=== PATIENT | female | born 1960 | race Caucasian/White ===

== ENCOUNTER 2016-10-08 08:43 | Inpatient (IN) | payer BC ==
[2016-10-08] VITALS (8 sets, daily range): BP systolic 94–130; BP diastolic 61–93; PULSE 67–104; TEMP 36.6–36.8; O2SAT 94–96; Ht 170.2 cm; Wt 128.8 kg
[~2016-10-08] VITALS: Ht 170.2 cm; Wt 128.8 kg
[2016-10-08] MEDS ORDERED: DILTIAZEM HCL 5 MG/ML 5 ML VIAL IV STA (09:08)
[2016-10-08] MEDS ORDERED: SODIUM CHLORIDE 0.9% 1000ML 1,000 ML IV ONE (09:15)
[2016-10-08 09:34] LABS: BASO % 0.5 %; BASO ABS # 0.04 K/uL (0-0.2); COMPLETE YES; EOS % 5.9 %; HEMATOCRIT 48.6 % (37-47); IG% 0.1 %; LYMPH % 35.4 %; LYMPH ABS # 2.62 K/uL (1.2-3.4); MEAN CELL VOLUME 88.8 fL (80-100); MEAN CORPUSCULAR HEMOGLOBIN 30.9 pg (25-34); MEAN CORPUSCULAR HGB CONC 34.8 g/dl (32-36); MEAN PLATELET VOLUME 9.5 fL (7.4-10.4); NEUT % 50.1 %; PLATELET COUNT 315 K/uL (130-400); RED BLOOD COUNT 5.47 M/uL (4.2-5.4); WHITE BLOOD COUNT 7.41 K/uL (4.8-10.8)
[2016-10-08] MEDS ORDERED: DILTIAZEM BOLUS / DRIP IV STA ×3 (09:36→10:36)
[2016-10-08 09:46] LABS: PROTHROMBIN TIME (PATIENT) 10.9 SECONDS (9.0-12.0)
[2016-10-08 09:53] LABS: ALT/SGPT 17 U/L (12-78); BLOOD UREA NITROGEN 18 mg/dl (7-18); BUN/CREATININE RATIO 18.5 (10-20); CALCIUM 8.7 mg/dl (8.5-10.1); CARBON DIOXIDE 26 mmol/L (21-32); CHLORIDE 112 mmol/L (98-107); CREATININE 0.97 mg/dl (0.60-1.20); GLUCOSE 111 mg/dl (70-99); POTASSIUM 3.8 mmol/L (3.5-5.1); SODIUM 145 mmol/L (136-145)
--- NOTE | 2016-10-08 09:54 | DIAGNOSTIC IMAGING REPORT ---
CHEST ONE VIEW PORTABLE CLINICAL HISTORY: palpitations COMPARISON STUDY: No previous studies for comparison. FINDINGS: The heart is at the upper limits of normal in size. There is no failure. There is no focal pulmonary consolidation. There are no pleural effusions.[ IMPRESSION: No active disease in the chest. Electronically signed by: Ken Natarajan M.D. 10/08/2016 9:52 AM Dictated Date/Time: 10/08/2016 9:52 AM
[2016-10-08 10:01] LABS: ALB/GLOB RATIO 0.8 (0.9-2); ALKALINE PHOSPHATASE 88 U/L (45-117); AST/SGOT 13 U/L (15-37); CKMB/CK RATIO 0.9 (0-3.0); MAGNESIUM 2.6 mg/dl (1.8-2.4)
[2016-10-08] MEDS: DILTIAZEM HCL INJ 125 MG in DEXTROSE 5% 100ML IV PRN ×2 (10:19→17:43)
--- NOTE | 2016-10-08 10:32 | EMERGENCY ROOM VISIT NOTE ---
ED Visit Note First contact with patient: 08:52 This is a 56-year-old female who presents emergency department complaining of heart palpitations. Her heart rate was found to be grossly elevated. The patient is reporting weakness along with this. She is unsure as to when this started. GENERAL: Patient is a healthy-appearing well-nourished female HEAD: Normocephalic atraumatic EYES: Ocular movements intact pupils equal and react to light OROPHARYNX mucous membranes are moist no exudates present no erythema or edema present NECK: Supple no nuchal rigidity CHEST: Good equal expansion LUNGS: Clear and equal to auscultation CARDIAC: Normal S1 and S2 ABDOMEN: Soft nontender no guarding BACK: No CVA tenderness EXTREMITIES: No pain upon palpation normal muscle strength in all groups no clubbing cyanosis or edema NEURO: Patient is following commands is answering questions appropriately. Alert and oriented x3 Cranial Nerves 2-12 grossly intact The patient was started on a Cardizem bolus and drip. I did discuss case with the hospitalist service who agreed to admit the patient. Patient and family were in agreement with treatment plan. I have personally spent greater than 90 minutes of critical care time in the direct management of this patient. This includes bedside care, interpretation of diagnostic studies, and testing, discussion with consultants, patient, and family members, and other required patient management activities. This 90 minutes is in excess of all separately billable procedures. Problem List Medical Problems: (1) Allergic rhinitis Status: Chronic (2) Asthma, mild persistent Status: Chronic (3) HTN (hypertension) Status: Chronic Surgical Problems: (1) History of tubal ligation Status: Chronic Current/Historical Medications Scheduled Montelukast Sodium (Singulair), 1 TAB PO DAILY Triamterene/Hctz (Triamterene/Hctz 37.5-25MG), 1 TAB PO DAILY Scheduled PRN Albuterol Sulfate (Proair Respiclick), 2 PUFF INH Q4H PRN for SOB/Wheezing Allergies Coded Allergies: Penicillins (Unverified Allergy, Severe, rash, 10/08/16) Sulfa Antibiotics (Unverified Allergy, Severe, GI UPSET, 10/08/16) Vital Signs Date Time Temp Pulse Resp B/P Pulse Ox O2 Delivery O2 Flow Rate FiO2 10/08/16 10:20 131 22 149/87 96 Room Air 10/08/16 10:03 108 10/08/16 09:34 93 Room Air 10/08/16 09:33 100 20 144/98 93 Room Air 10/08/16 09:15 174 22 120/104 95 Room Air 10/08/16 08:45 96 Room Air 10/08/16 08:45 36.3 118 22 172/112 96 Room Air Laboratory Results 10/08/16 09:10 Red Blood Count 5.47, Mean Corpuscular Volume 88.8, Mean Corpuscular Hemoglobin 30.9, Mean Corpuscular Hemoglobin Concent 34.8, Mean Platelet Volume 9.5, Neutrophils (%) (Auto) 50.1, Lymphocytes (%) (Auto) 35.4, Monocytes (%) (Auto) 8.0, Eosinophils (%) (Auto) 5.9, Basophils (%) (Auto) 0.5, Neutrophils # (Auto) 3.71, Lymphocytes # (Auto) 2.62, Monocytes # (Auto) 0.59, Eosinophils # (Auto) 0.44, Basophils # (Auto) 0.04 10/08/16 09:10 Test 10/08/16 09:10 10/08/16 09:32 White Blood Count 7.41 K/uL (4.8-10.8) Red Blood Count 5.47 M/uL (4.2-5.4) Hemoglobin 16.9 g/dL (12.0-16.0) Hematocrit 48.6 % (37-47) Mean Corpuscular Volume 88.8 fL (80-100) Mean Corpuscular Hemoglobin 30.9 pg (25-34) Mean Corpuscular Hemoglobin Concent 34.8 g/dl (32-36) Platelet Count 315 K/uL (130-400) Mean Platelet Volume 9.5 fL (7.4-10.4) Neutrophils (%) (Auto) 50.1 % Lymphocytes (%) (Auto) 35.4 % Monocytes (%) (Auto) 8.0 % Eosinophils (%) (Auto) 5.9 % Basophils (%) (Auto) 0.5 % Neutrophils # (Auto) 3.71 K/uL (1.4-6.5) Lymphocytes # (Auto) 2.62 K/uL (1.2-3.4) Monocytes # (Auto) 0.59 K/uL (0.11-0.59) Eosinophils # (Auto) 0.44 K/uL (0-0.5) Basophils # (Auto) 0.04 K/uL (0-0.2) RDW Standard Deviation 43.0 fL (36.4-46.3) RDW Coefficient of Variation 13.1 % (11.5-14.5) Immature Granulocyte % (Auto) 0.1 % Immature Granulocyte # (Auto) 0.01 K/uL (0.00-0.02) Prothrombin Time 10.9 SECONDS (9.0-12.0) Prothromb Time International Ratio 1.0 (0.9-1.1) Activated Partial Thromboplast Time 27.1 SECONDS (21.0-31.0) Partial Thromboplastin Ratio 1.0 Anion Gap 7.0 mmol/L (3-11) Est Creatinine Clear Calc Drug Dose 92.6 ml/min Estimated GFR () 76.7 Estimated GFR (Non- 66.2 BUN/Creatinine Ratio 18.5 (10-20) Calcium Level 8.7 mg/dl (8.5-10.1) Magnesium Level 2.6 mg/dl (1.8-2.4) Total Bilirubin 0.5 mg/dl (0.2-1) Aspartate Amino Transf (AST/SGOT) 13 U/L (15-37) Alanine Aminotransferase (ALT/SGPT) 17 U/L (12-78) Alkaline Phosphatase 88 U/L (45-117) Total Creatine Kinase 69 U/L (26-192) Total Protein 7.7 gm/dl (6.4-8.2) Albumin 3.5 gm/dl (3.4-5.0) Globulin 4.2 gm/dl (2.5-4.0) Albumin/Globulin Ratio 0.8 (0.9-2) Lipase 140 U/L (73-393) Thyroid Stimulating Hormone (TSH) 3.350 uIu/ml (0.300-4.500) Free Thyroxine 1.10 ng/dl (0.80-1.60) Lyme Disease IgG Antibody NEG (NEG) Lyme Disease IgM Antibody NEG (NEG) Bedside Troponin I 0.000 ng/ml (0-0.045) Medications Administered Medications (Trade) Dose Ordered Sig/Turner Route Start Time Stop Time Status Last Admin Dose Admin Diltiazem HCl 20 mg 20 mg NOW STAT IV 10/08/16 09:08 10/08/16 09:18 DC 10/08/16 09:22 20 MG Sodium Chloride 1,000 ml @ 999 mls/hr Q1H1M ONCE IV 10/08/16 09:15 10/08/16 10:15 DC 10/08/16 09:23 999 MLS/HR Diltiazem HCl/ Dextrose (Cardizem Inj/D5 100ml) 125 ml @ 0 mls/hr Q0M PRN IV 10/08/16 10:00 11/07/16 09:59 10/08/16 10:19 10 MLS/HR Departure Information Impression Primary Impression: Atrial fibrillation with RVR Referrals Zayda Syed M.D. (PCP) Patient Instructions [facility]
[2016-10-08] MEDS ORDERED: ALBU18002 INH (10:42)
[2016-10-08] MEDS ORDERED: MONT1TAB3 PO (10:42)
[2016-10-08] MEDS ORDERED: TRIATAB3 PO (10:42)
[2016-10-08 10:45] LABS: LYME DISEASE AB IGG NEG (NEG); LYME DISEASE AB IGM NEG (NEG)
[2016-10-08] MEDS ORDERED: ONDANSETRON INJ 2 MG/ML 2 ML VIAL IV PRN (10:45)
[2016-10-08] MEDS ORDERED: ACETAMINOPHEN 325 MG TAB PO PRN (10:45)
[2016-10-08] MEDS ORDERED: HEPARIN SOD 5000 UNIT/0.5 ML CARP ONE (10:55)
[2016-10-08] MEDS ORDERED: HEPARIN 25000 UNIT/500 ML D5W ONE (10:55)
[2016-10-08] MEDS ORDERED: PNEUMOCOCCAL POLYSACCHARIDES 25 MCG/0.5 ML VIAL/SYR IM. ONE (12:00)
[2016-10-08] MEDS ORDERED: PNEUMOCOCCAL ADMINISTRATION CHARGE ONE (12:00)
--- NOTE | 2016-10-08 12:01 | History and Physical ---
History & Physical Date & Time of Service: Oct 08, 2016 ~ 10:00 Chief Complaint: Palpitations, Shortness of Breath Primary Care Physician: Zayda Syed M.D. History of Present Illness 56 year old female who presents to the ER with palpitations and shortness of breath. Patient reports that over the past one month she has noted increasing exertional shortness of breath and decreased activity tolerance. This morning when she woke up she reports she was having palpitations. She continued to get ready and went to work. She reports that while walking into work she felt short of breath and palpitations got worse. She also had associated diaphoresis and lightheadedness. She called her PCP who referred her to the ER for further evaluation. She denies chest pain and pressure. No syncopal events. She denies abdominal pain, nausea, vomiting, or diarrhea. Reports last week she had mild post nasal drip. She denies fever, chills, cough, and sputum production. In the ER, patient was found to be in rapid atrial fibrillation with rates in the 170s. She was given Cardizem bolus 20mg and then started on drip. Rates are now in the 120s. Patient reports improved in her symptoms. Past Medical/Surgical History Medical Problems: (1) Allergic rhinitis Status: Chronic (2) Asthma, mild persistent Status: Chronic (3) HTN (hypertension) Status: Chronic Surgical Problems: (1) History of tubal ligation Status: Chronic Family History FH: CVA (cerebrovascular accident) FATHER FH: HTN (hypertension) MOTHER FH: colon cancer BROTHER FH: diabetes mellitus FATHER BROTHER BROTHER Social History Smoking Status: Never Smoker Alcohol Use: occasionally Immunizations History of Influenza Vaccine: Yes Influenza Vaccine Date: Apr 04, 2016 History of Tetanus Vaccine?: Yes Tetanus Immunization Date: Dec 04, 2011 History of Pneumococcal: Yes Pneumococcal Date: Dec 04, 2011 Multi-Drug Resistant Organisms History of MDRO: No Allergies Coded Allergies: Penicillins (Unverified Allergy, Severe, rash, 10/08/16) Sulfa Antibiotics (Unverified Allergy, Severe, GI UPSET, 10/08/16) Home Medications Scheduled Montelukast Sodium (Singulair), 1 TAB PO DAILY Triamterene/Hctz (Triamterene/Hctz 37.5-25MG), 1 TAB PO DAILY Scheduled PRN Albuterol Sulfate (Proair Respiclick), 2 PUFF INH Q4H PRN for SOB/Wheezing Review of Systems 10 point review of systems was completed with the pertinent positives and negatives noted per the HPI Physical Exam Vital Signs Date Time Temp Pulse Resp B/P Pulse Ox O2 Delivery O2 Flow Rate FiO2 10/08/16 10:57 123 22 149/61 96 Room Air 10/08/16 10:20 131 22 149/87 96 Room Air 10/08/16 10:03 108 10/08/16 09:34 93 Room Air 10/08/16 09:33 100 20 144/98 93 Room Air 10/08/16 09:15 174 22 120/104 95 Room Air 10/08/16 08:45 96 Room Air 10/08/16 08:45 36.3 118 22 172/112 96 Room Air General Appearance: no apparent distress Head: normocephalic Eyes: normal inspection ENT: hearing grossly normal Neck: supple, no JVD Respiratory/Chest: lungs clear, normal breath sounds, no respiratory distress Cardiovascular: no edema, + tachycardia, + irregularly irregular Abdomen/GI: normal bowel sounds, non tender, soft Extremities/Musculoskelatal: normal inspection, no calf tenderness Neurologic/Psych: no motor/sensory deficits, alert, normal mood/affect, oriented x 3 Skin: normal color, warm/dry Diagnostics Laboratory Results Results Past 24 Hours Test 10/08/16 09:10 10/08/16 09:32 10/08/16 10:38 Range/Units White Blood Count 7.41 4.8-10.8 K/uL Red Blood Count 5.47 4.2-5.4 M/uL Hemoglobin 16.9 12.0-16.0 g/dL Hematocrit 48.6 37-47 % Mean Corpuscular Volume 88.8 80-100 fL Mean Corpuscular Hemoglobin 30.9 25-34 pg Mean Corpuscular Hemoglobin Concent 34.8 32-36 g/dl Platelet Count 315 130-400 K/uL Mean Platelet Volume 9.5 7.4-10.4 fL Neutrophils (%) (Auto) 50.1 % Lymphocytes (%) (Auto) 35.4 % Monocytes (%) (Auto) 8.0 % Eosinophils (%) (Auto) 5.9 % Basophils (%) (Auto) 0.5 % Neutrophils # (Auto) 3.71 1.4-6.5 K/uL Lymphocytes # (Auto) 2.62 1.2-3.4 K/uL Monocytes # (Auto) 0.59 0.11-0.59 K/uL Eosinophils # (Auto) 0.44 0-0.5 K/uL Basophils # (Auto) 0.04 0-0.2 K/uL RDW Standard Deviation 43.0 36.4-46.3 fL RDW Coefficient of Variation 13.1 11.5-14.5 % Immature Granulocyte % (Auto) 0.1 % Immature Granulocyte # (Auto) 0.01 0.00-0.02 K/uL Prothrombin Time 10.9 9.0-12.0 SECONDS Prothromb Time International Ratio 1.0 0.9-1.1 Activated Partial Thromboplast Time 27.1 21.0-31.0 SECONDS Partial Thromboplastin Ratio 1.0 Sodium Level 145 136-145 mmol/L Potassium Level 3.8 3.5-5.1 mmol/L Chloride Level 112 98-107 mmol/L Carbon Dioxide Level 26 21-32 mmol/L Anion Gap 7.0 3-11 mmol/L Blood Urea Nitrogen 18 7-18 mg/dl Creatinine 0.97 0.60-1.20 mg/dl Est Creatinine Clear Calc Drug Dose 92.6 ml/min Estimated GFR () 76.7 Estimated GFR (Non- 66.2 BUN/Creatinine Ratio 18.5 10-20 Random Glucose 111 70-99 mg/dl Calcium Level 8.7 8.5-10.1 mg/dl Magnesium Level 2.6 1.8-2.4 mg/dl Total Bilirubin 0.5 0.2-1 mg/dl Aspartate Amino Transf (AST/SGOT) 13 15-37 U/L Alanine Aminotransferase (ALT/SGPT) 17 12-78 U/L Alkaline Phosphatase 88 45-117 U/L Total Creatine Kinase 69 26-192 U/L Creatine Kinase MB 0.6 0.5-3.6 ng/ml Creatine Kinase MB Ratio 0.9 0-3.0 Total Protein 7.7 6.4-8.2 gm/dl Albumin 3.5 3.4-5.0 gm/dl Globulin 4.2 2.5-4.0 gm/dl Albumin/Globulin Ratio 0.8 0.9-2 Lipase 140 73-393 U/L Thyroid Stimulating Hormone (TSH) 3.350 0.300-4.500 uIu/ml Free Thyroxine 1.10 0.80-1.60 ng/dl Lyme Disease IgG Antibody NEG NEG Lyme Disease IgM Antibody NEG NEG Bedside Troponin I 0.000 0-0.045 ng/ml Diagnostic Radiology CXR IMPRESSION: No active disease in the chest. Impression Assessment and Plan NEW ONSET ATRIAL FIBRILLATION WITH RVR - admit to tele - patient presenting with palpitations, shortness of breath, diaphoresis, and lightheadedness; found to be in a fib with RVR, rates in the 170s - received Cardizem 20mg IV bolus in ED followed by drip - HR at the time of my exam was in the 120s, however drip was just hung - BP stable, patient symptoms improved - no clear causative factor identified - electrolytes and TSH WNL, no infectious sources - patient reports she drink 2 cups coffee/day - will continue cardizem drip; start IV heparin - CHADS2 - 1 (HTN) - initial troponin negative, continue to cycle cardiac enzymes; check resting echo - cardio consult, case discussed with Dr. Michelle HTN - hypertensive on arrival, improving with Cardizem - hold Maxzide for now DVT PROPHYLAXIS - on heparin gtt DISPO - In my clinical judgment this beneficiary meets acute admission criteria, established by [facility], that includes being hospitalized through two midnights. I have seen, examined and discussed this patient with Treasure Chung and I agree with the above note. Patient presented with palpitations. Vitals notable for tachycardia PE: General- awake; alert; NAD Eyes- EOMI; no scleral icterus Neck- no stridor; trachea midline Lungs- CTA bilaterally; no wheezes/crackles Heart- irregularly irregular Abdomen- soft; NTND; nBS Back- no gross abnormalities Extremities- trace LE edema; no deformity Neuro- no focal deficits Skin- no appreciable rash or bruise NEW ONSET ATRIAL FIBRILLATION WITH RVR - heart rate improved with diltiazem infusion - no clear causative factor identified - electrolytes and TSH WNL, no infectious sources - continue heparin drip - CHADS2 - 1 (HTN) - cardiac enzymes negative - TTE pending - cardiology consulted - metoprolol started HTN - hypertensive on arrival - improved with diltiazem - hold Maxzide for now DVT PROPHYLAXIS - on heparin gtt VTE Prophylaxis VTE Risk Assessment Done? Y/N: Yes Risk Level: Moderate Given or contraindicated: Other Anticoagulation
[2016-10-08] MEDS ORDERED: DILTIAZEM HCL INJ 125 MG in DEXTROSE 5% 100ML IV PRN (13:00)
[2016-10-08 14:24] LABS: URINE APPEARANCE CLEAR (CLEAR); URINE BILIRUBIN NEG (NEG); URINE COLOR YELLOW; URINE EPITHELIAL CELL AUTO 20-30 /lpf (0-5); URINE NITRITE NEG (NEG); URINE SPECIFIC GRAVITY 1.007 (1.000-1.030); UROBILINOGEN NEG (NEG); ZZUR CULT IF INDIC CLEAN CATCH NO
[2016-10-08 14:29] LABS: MANUAL MICROSCOPIC REQUIRED? NO; REVIEW REQ? NO
--- NOTE | 2016-10-08 15:28 | EMERGENCY ROOM VISIT NOTE ---
History First contact with patient: 08:52 Chief Complaint: PALPITATIONS Stated Complaint: NEW ONSET ATRIAL FIBRILATION Nursing Triage Summary: Pt states she has had palpitations since approx 7a.m. after being awake with shortness of breath. Denies complaints of pain, pt states "just feeling like my heart racing and that I am breathing heavier." History of Present Illness The patient is a 56 year old female who presents to the Emergency Room with complaints of palpitations and shortness of breath that began about 90 minutes ago. The patient does not have distinct chest pain or radiation of pain, but states that ambulation does seem to worsen her symptoms. She feels like her heart is racing and that her breathing is heavy. The patient considers herself usually healthy. There is a family history of cardiac disease and diabetes, however the patient does not have these. She does not have distinct pain and rates her overall discomfort a 2/10. She has not taken anything over-the- counter for her symptoms. She does not feel lightheaded or dizzy. No numbness or paresthesias. Review of Systems More than 10 systems were reviewed and otherwise negative with the exception of history of present illness. Past Medical/Surgical History Medical Problems: (1) Allergic rhinitis (2) Asthma, mild persistent (3) HTN (hypertension) Surgical Problems: (1) History of tubal ligation Family History FH: CVA (cerebrovascular accident) FATHER FH: HTN (hypertension) MOTHER FH: colon cancer BROTHER FH: diabetes mellitus FATHER BROTHER BROTHER Social History Smoking Status: Never Smoker Housing Status: lives with family Current/Historical Medications Scheduled Montelukast Sodium (Singulair), 1 TAB PO DAILY Triamterene/Hctz (Triamterene/Hctz 37.5-25MG), 1 TAB PO DAILY Scheduled PRN Albuterol Sulfate (Proair Respiclick), 2 PUFF INH Q4H PRN for SOB/Wheezing Allergies Coded Allergies: Penicillins (Unverified Allergy, Severe, rash, 10/08/16) Sulfa Antibiotics (Unverified Allergy, Severe, GI UPSET, 10/08/16) Physical Exam Vital Signs Date Time Temp Pulse Resp B/P Pulse Ox O2 Delivery O2 Flow Rate FiO2 10/08/16 10:20 131 22 149/87 96 Room Air 10/08/16 10:03 108 10/08/16 09:34 93 Room Air 10/08/16 09:33 100 20 144/98 93 Room Air 10/08/16 09:15 174 22 120/104 95 Room Air 10/08/16 08:45 96 Room Air 10/08/16 08:45 36.3 118 22 172/112 96 Room Air Pain Rating (0-10): 0 Physical Exam VITALS: Vitals are noted on the nurse's note and reviewed by myself. Vital signs with tachycardia and hypertension GENERAL: Well-developed, well-nourished, white female, who is in no acute distress and resting comfortably. Patient is cooperative with the examination. HEAD: Normocephalic atraumatic. HEART: Irregularly irregular LUNGS: Clear to auscultation bilaterally without wheezes, rales or rhonchi. No retractions or accessory muscle use. ABDOMEN: Positive normal bowel sounds x 4. Soft, nontender, without masses or organomegaly. MUSCULOSKELETAL: No muscle atrophy, erythema, or edema noted. NEURO: Patient was alert and oriented to person place and time. CN II through XII grossly intact. Medical Decision & Procedures ER Provider Diagnostic Interpretation: CHEST ONE VIEW PORTABLE CLINICAL HISTORY: palpitations COMPARISON STUDY: No previous studies for comparison. FINDINGS: The heart is at the upper limits of normal in size. There is no failure. There is no focal pulmonary consolidation. There are no pleural effusions.[ IMPRESSION: No active disease in the chest. Laboratory Results 10/08/16 09:10 Red Blood Count 5.47, Mean Corpuscular Volume 88.8, Mean Corpuscular Hemoglobin 30.9, Mean Corpuscular Hemoglobin Concent 34.8, Mean Platelet Volume 9.5, Neutrophils (%) (Auto) 50.1, Lymphocytes (%) (Auto) 35.4, Monocytes (%) (Auto) 8.0, Eosinophils (%) (Auto) 5.9, Basophils (%) (Auto) 0.5, Neutrophils # (Auto) 3.71, Lymphocytes # (Auto) 2.62, Monocytes # (Auto) 0.59, Eosinophils # (Auto) 0.44, Basophils # (Auto) 0.04 10/08/16 09:10 Test 10/08/16 09:10 10/08/16 09:32 White Blood Count 7.41 K/uL (4.8-10.8) Red Blood Count 5.47 M/uL (4.2-5.4) Hemoglobin 16.9 g/dL (12.0-16.0) Hematocrit 48.6 % (37-47) Mean Corpuscular Volume 88.8 fL (80-100) Mean Corpuscular Hemoglobin 30.9 pg (25-34) Mean Corpuscular Hemoglobin Concent 34.8 g/dl (32-36) Platelet Count 315 K/uL (130-400) Mean Platelet Volume 9.5 fL (7.4-10.4) Neutrophils (%) (Auto) 50.1 % Lymphocytes (%) (Auto) 35.4 % Monocytes (%) (Auto) 8.0 % Eosinophils (%) (Auto) 5.9 % Basophils (%) (Auto) 0.5 % Neutrophils # (Auto) 3.71 K/uL (1.4-6.5) Lymphocytes # (Auto) 2.62 K/uL (1.2-3.4) Monocytes # (Auto) 0.59 K/uL (0.11-0.59) Eosinophils # (Auto) 0.44 K/uL (0-0.5) Basophils # (Auto) 0.04 K/uL (0-0.2) RDW Standard Deviation 43.0 fL (36.4-46.3) RDW Coefficient of Variation 13.1 % (11.5-14.5) Immature Granulocyte % (Auto) 0.1 % Immature Granulocyte # (Auto) 0.01 K/uL (0.00-0.02) Prothrombin Time 10.9 SECONDS (9.0-12.0) Prothromb Time International Ratio 1.0 (0.9-1.1) Activated Partial Thromboplast Time 27.1 SECONDS (21.0-31.0) Partial Thromboplastin Ratio 1.0 Anion Gap 7.0 mmol/L (3-11) Est Creatinine Clear Calc Drug Dose 92.6 ml/min Estimated GFR () 76.7 Estimated GFR (Non- 66.2 BUN/Creatinine Ratio 18.5 (10-20) Calcium Level 8.7 mg/dl (8.5-10.1) Magnesium Level 2.6 mg/dl (1.8-2.4) Total Bilirubin 0.5 mg/dl (0.2-1) Aspartate Amino Transf (AST/SGOT) 13 U/L (15-37) Alanine Aminotransferase (ALT/SGPT) 17 U/L (12-78) Alkaline Phosphatase 88 U/L (45-117) Total Creatine Kinase 69 U/L (26-192) Total Protein 7.7 gm/dl (6.4-8.2) Albumin 3.5 gm/dl (3.4-5.0) Globulin 4.2 gm/dl (2.5-4.0) Albumin/Globulin Ratio 0.8 (0.9-2) Lipase 140 U/L (73-393) Thyroid Stimulating Hormone (TSH) 3.350 uIu/ml (0.300-4.500) Free Thyroxine 1.10 ng/dl (0.80-1.60) Lyme Disease IgG Antibody NEG (NEG) Lyme Disease IgM Antibody NEG (NEG) Bedside Troponin I 0.000 ng/ml (0-0.045) Medications Administered Medications (Trade) Dose Ordered Sig/Turner Route Start Time Stop Time Status Last Admin Dose Admin Diltiazem HCl 20 mg 20 mg NOW STAT IV 10/08/16 09:08 10/08/16 09:18 DC 10/08/16 09:22 20 MG Sodium Chloride 1,000 ml @ 999 mls/hr Q1H1M ONCE IV 10/08/16 09:15 10/08/16 10:15 DC 10/08/16 09:23 999 MLS/HR Diltiazem HCl/ Dextrose (Cardizem Inj/D5 100ml) 125 ml @ 0 mls/hr Q0M PRN IV 10/08/16 10:00 11/07/16 09:59 10/08/16 10:19 10 MLS/HR ED Course Physical exam and history were performed. Nursing notes and EMR were reviewed. Patient appears to have palpitations and shortness of breath that began about 90 minutes prior to arrival. The patient does not have distinct chest pain. She indicates that she has never had an EKG in the past. EKG was performed here and shows atrial fibrillation with RVR with a rate in the 170s. There is no obvious ST elevation or ischemia. IV access was established and labs were obtained. The patient was hydrated with normal saline. I discussed the case with my attending physician, Dr. Menchaca, who remained very closely involved in care and decision making. The patient was given 20 mg diltiazem IV as well as a diltiazem drip. She was placed on a iv therapy nurse. Chest x-ray was performed. The patient's blood work is as above and was reviewed. She does not have a significantly elevated white blood cell count, bandemia, or significant electrolyte imbalance. Lipase and transaminases are nondiagnostic. Troponin 1 is negative. Repeat EKG after diltiazem showed a decreased rate of 104, however the patient did remain in atrial fibrillation with RVR. After Dr. Menchaca evaluated the patient, we discussed the case with the on-call hospitalist who agreed to evaluate the patient here in the ER. The patient is not felt stable for discharge home and will need further care. Please see the hospitalist dictation for further patient plan and disposition. The chart was completed utilizing [employer] Speech Voice Recognition Software. Grammatical errors, random word insertions, pronoun errors, and incomplete sentences are an occasional consequence of this system due to software limitations, ambient noise, and hardware issues. Any formal questions or concerns about the content, text, or information contained within the body of this dictation should be directly addressed to the provider for clarification. . Medical Decision Differential diagnosis includes, but is not limited to: Myocardial infarction, dysrhythmia, pericarditis, pneumothorax, aortic aneurysm/dissection, DVT/PE, anxiety, GERD, PUD, electrolyte imbalance, thyroid disorder, pneumonia, bronchitis, pancreatitis, and others Impression Primary Impression: Atrial fibrillation with rapid ventricular response Departure Information Dispostion Being Evaluated By Hospitalist Condition FAIR Referrals Zayda Syed M.D. (PCP) Forms WORK / SCHOOL INSTRUCTIONS, HOME CARE DOCUMENTATION FORM, IMPORTANT VISIT INFORMATION Patient Instructions [facility]
--- NOTE | 2016-10-08 15:44 | CARDIOLOGY CONSULTATION ---
DATE OF CONSULTATION: 10/08/2016 [facility] REASON FOR CONSULTATION: Atrial fibrillation with RVR. HISTORY OF PRESENT ILLNESS: This is a 56-year-old female who presents to the Emergency Department with shortness of breath. She was in her usual state of health until this morning when she got up, she noticed some tachypnea. She tried to ambulate and while walking up the steps she was really short of breath and decided to present to the Emergency Department. She was found to be in atrial fibrillation with RVR. She was started on a heparin infusion and diltiazem drip. Her heart rates have markedly improved and she is feeling better. Thus far, cardiac markers are negative. Echocardiogram is pending. Thyroid function studies are negative. ALLERGIES: PENICILLIN AND SULFA ANTIBIOTICS. PAST MEDICAL HISTORY: The patient has no prior history of heart disease. She denies myocardial infarction, angina or congestive heart failure. She has no history of strokes, thyroid disease, or kidney disease. She is treated for hypertension. No personal history of diabetes, but her family history significant for diabetes. SOCIAL HISTORY: She is a never smoker. FAMILY MEDICAL HISTORY: Significant for father and 2 brothers with diabetes. REVIEW OF SYSTEMS: The 10-point review of systems is negative except for the history of chief complaint. PHYSICAL EXAMINATION: GENERAL: She is alert and oriented. VITAL SIGNS: Blood pressure is 130/80. Pulse is irregular at 90 beats per minute. She is afebrile. HEENT: She is normocephalic. Pupils are equal and reactive to light. Extraocular muscles are intact bilaterally. NECK: The neck veins are flat. Carotids have good upstrokes bilaterally without bruits. Thyroid is nonpalpable. RESPIRATORY: Breath sounds equal bilaterally and clear to auscultation. CARDIOVASCULAR: Heart has an irregular rhythm. There are no cardiac rubs or murmurs. GASTROINTESTINAL: Abdomen is soft, nontender without organomegaly. EXTREMITIES: Free of edema, digit clubbing, or cyanosis. NEUROLOGIC: Grossly intact. SKIN: Warm to touch. LYMPH NODES: Negative to palpation. LABORATORY DATA: The cardiac markers are negative thus far. Echocardiogram is pending. Thyroid functions are negative. IMPRESSION: Atrial fibrillation with rapid ventricular response. RECOMMENDATIONS: The patient has been started on a diltiazem drip and currently her heart rates are controlled. I am hopeful that she may convert to a normal sinus rhythm on her own. We will wait for the echocardiogram to be completed and I will review that. If she has no significant valvular heart disease, we may consider switching her to DOAC from heparin. Further evaluation and treatment following the above. MTDD
--- NOTE | 2016-10-08 16:56 | ECHOCARDIOGRAM REPORT ---
*NOTICE TO RECEIVING DEMOCRAT AGENCY This information is strictly Confidential and protected under [place] law. [place] law prohibits you from making any further disclosure of this information unless further disclosure is expressly permitted by the written consent of the person to whom it pertains or is authorized by law. A general authorization for the release of medical or other information is not sufficient for this purpose. Hospital accepts no responsibility if the information is made available to any other person, INCLUDING THE PATIENT. Interpretation Summary * Name: ERICK MAURO Study Date: 10/08/2016 02:56 PM BP: 128/84 mmHg * Patient Location: [facility] HR: 104 * : 1960 (M/d/yyyy) Gender: Female Height: 67 in * Age: 56 yrs Ethnicity: CA Weight: 283 lb * Ordering Physician: Treasure Chung * Referring Physician: Zayda Syed * Performed By: Irma Churchill RDCS * * Reason For Study: Atrial fibrillation * BSA: 2.3 m2 * -- Conclusions -- * There is normal left ventricular wall thickness. * Left ventricular systolic function is normal. * Ejection Fraction = 60-65%. * The right ventricular systolic function is normal. * The left atrial size is normal. * Right atrial size is normal. * No significant valvular pathology. Procedure Details * A complete two-dimensional transthoracic echocardiogram was performed (2D, M-mode, Doppler and color flow Doppler). Left Ventricle * The left ventricle is normal in size. * There is normal left ventricular wall thickness. * Ejection Fraction = 60-65%. * Left ventricular systolic function is normal. Right Ventricle * The right ventricle is normal in size and function. * There is normal right ventricular wall thickness. * The right ventricular systolic function is normal. Atria * The left atrial size is normal. * Right atrial size is normal. * The interatrial septum is intact with no evidence for an atrial septal defect. Mitral Valve * The mitral valve is normal in structure and function. * There is no mitral valve stenosis. * There is no mitral regurgitation noted. Tricuspid Valve * The tricuspid valve is normal in structure and function. * There is trace tricuspid regurgitation. Aortic Valve * The aortic valve is normal in structure and function. * No aortic regurgitation is present. Pulmonic Valve * The pulmonic valve is normal in structure and function. * There is no pulmonic valvular regurgitation. Great Vessels * The aortic root is normal size. * No obvious dissection could be visualized. * The pulmonary artery is normal size. Pericardium/Pleural * There is no pericardial effusion. MMode 2D Measurements and Calculations IVSd 1.1 cm LVIDd 3.5 cm LVIDs 2.3 cm LVPWd 1.2 cm IVS/LVPW 0.92 FS 32.9 % EDV(Teich) 49.3 ml ESV(Teich) 18.5 ml EF(Teich) 62.6 % EDV(cubed) 41.2 ml ESV(cubed) 12.4 ml EF(cubed) 69.8 % LV mass(C)d 117.4 grams LV mass(C)dI 50.1 grams/m\S\2 CO(Teich) 2.8 l/min CI(Teich) 1.2 l/min/m\S\2 SV(Teich) 30.8 ml SI(Teich) 13.2 ml/m\S\2 CO(cubed) 2.6 l/min CI(cubed) 1.1 l/min/m\S\2 SV(cubed) 28.8 ml SI(cubed) 12.3 ml/m\S\2 Ao root diam 3.4 cm Ao root area 9.2 cm\S\2 ACS 2.0 cm LA dimension 3.3 cm asc Aorta Diam 3.7 cm LA/Ao 0.96 LVOT diam 2.0 cm LVOT area 3.2 cm\S\2 LVAd ap4 29.0 cm\S\2 LVLd ap4 8.2 cm EDV(MOD-sp4) 84.0 ml LVAs ap4 15.0 cm\S\2 LVLs ap4 7.2 cm ESV(MOD-sp4) 27.2 ml EF(MOD-sp4) 67.6 % LVAd ap2 25.4 cm\S\2 LVLd ap2 8.8 cm EDV(MOD-sp2) 62.3 ml LVAs ap2 14.2 cm\S\2 LVLs ap2 7.1 cm ESV(MOD-sp2) 25.0 ml EF(MOD-sp2) 59.9 % CO(MOD-sp4) 5.1 l/min CI(MOD-sp4) 2.2 l/min/m\S\2 SV(MOD-sp4) 56.8 ml SI(MOD-sp4) 24.2 ml/m\S\2 CO(MOD-sp2) 3.4 l/min CI(MOD-sp2) 1.4 l/min/m\S\2 SV(MOD-sp2) 37.3 ml SI(MOD-sp2) 15.9 ml/m\S\2 Doppler Measurements and Calculations MV E max juliane 88.3 cm/sec MV dec time 0.17 sec Ao V2 max 112.5 cm/sec Ao max PG 5.1 mmHg Ao max PG (full) 1.4 mmHg MAYA(V,A) 2.7 cm\S\2 MAYA(V,D) 2.7 cm\S\2 AI max juliane 378.7 cm/sec AI max PG 57.4 mmHg AI dec slope 119.1 cm/sec\S\2 AI P1/2t 931.7 msec LV V1 max PG 3.7 mmHg LV V1 max 96.0 cm/sec PA V2 max 97.7 cm/sec PA max PG 3.8 mmHg PA acc slope 480.3 cm/sec\S\2 PA acc time 0.13 sec TR max juliane 169.9 cm/sec PA pr(Accel) 20.4 mmHg
[2016-10-08] MEDS ORDERED: MONTELUKAST SOD 10 MG TAB PO SCH (21:00)
[2016-10-08] MEDS: METOPROLOL TARTRATE 25 MG TAB PO SCH (21:33)
[2016-10-08] MEDS ORDERED: NURSING VERBAL MED ORDER ONE (23:30)
[2016-10-09] VITALS (10 sets, daily range): BP systolic 97–126; BP diastolic 61–78; PULSE 69–94; TEMP 36.5–36.9; O2SAT 94–97
[2016-10-09 01:34] LABS: PARTIAL THROMBOPLASTIN RATIO 2.3
[2016-10-09] MEDS: DILTIAZEM HCL INJ 125 MG in DEXTROSE 5% 100ML IV PRN ×2 (02:11→21:47)
[2016-10-09] MEDS: HEPARIN 25,000 UNIT/500ML D5W 500 ML IV PRN ×2 (04:01→21:46)
[2016-10-09 07:29] LABS: HEMATOCRIT 46.3 % (37-47); MEAN CELL VOLUME 89.4 fL (80-100); MEAN CORPUSCULAR HEMOGLOBIN 30.1 pg (25-34); MEAN CORPUSCULAR HGB CONC 33.7 g/dl (32-36); MEAN PLATELET VOLUME 9.2 fL (7.4-10.4); PLATELET COUNT 265 K/uL (130-400); RED BLOOD COUNT 5.18 M/uL (4.2-5.4); WHITE BLOOD COUNT 6.63 K/uL (4.8-10.8)
[2016-10-09 07:37] LABS: ESTIMATED AVERAGE GLUCOSE 105 mg/dl; HA1C FLAG Normal (Normal)
[2016-10-09 07:51] LABS: PARTIAL THROMBOPLASTIN RATIO 2.1
[2016-10-09 08:06] LABS: CREATININE 0.84 mg/dl (0.60-1.20); POTASSIUM 3.8 mmol/L (3.5-5.1)
[2016-10-09 08:36] LABS: CALCIUM 8.8 mg/dl (8.5-10.1)
--- NOTE | 2016-10-09 08:39 | Clinical Documentation Query ---
ALMA Paredes : CLINICAL DOCUMENTATION QUERY Patient is a 56 year old female admitted for evaluation and treatment of atrial fibrillation with RVR. BMI noted within EMR to be 44.5 kg/m*m. In order to capture this important clinical information, the condition associated with this finding must be explicitly documented by the provider. As appropriate, consider addendum of diagnosis as listed below as this directly impacts severity of illness, risk of mortality, and ultimately DRG assignment. In your clinical opinion is this patient being managed for: ( X ) Obesity ( ) Other explanation of clinical findings (Please Explain) ( ) Unable to determine (Please Define) ( ) Need to Discuss ( ) Not Agree The medical record reflects the following clinical findings, treatment, and risk factors. Clinical Indicators: As above Treatment: AHA diet Risk Factors: Caloric intake > expenditure, physical inactivity Clarification - BMI Reporting Coding Clinic [id number], p15 Question: There has been some confusion as to whether nursing staff documentation is acceptable for assigning BMI. Since hospitals are allowed to code the BMI based on the cfd engineer's documentation, it would seem reasonable to assign the BMI based on the nurse's documentation as well. Can coders use nursing documentation to assign the BMI? Answer: Yes, the BMI can be assigned based on medical record documentation from clinicians, including nurses and dieticians who are not the patient's provider. As stated in the Official Guidelines for Coding and Reporting, BMI code assignment may be based on medical record documentation from clinicians who are not the patient's provider, since this information is typically documented by other clinicians involved in the care of the patient. Dieticians were only mentioned as an example of a clinician that might document BMI information. However, the associated diagnosis (such as overweight, obesity, or underweight) must be documented by the provider. Copyright (2017), [facility] [facility] [employer] ("[employer]"), [place], [place]. Reproduced with permission. No portion of this publication may be copied without the express, written consent of [employer]. Please clarify and document your clinical opinion in the progress notes and discharge summary. Terms such as "probable", "suspected", "likely", "questionable", "possible", or "still to be ruled out" are acceptable. IF IN AGREEMENT, YOU MUST DOCUMENT ABOVE DIAGNOSTIC STATEMENT IN DAILY PROGRESS NOTES AND DISCHARGE SUMMARY. This document is not part of the patient's record. Thank You, Ashkan Capone, ANA ROSA [phone]
[2016-10-09] MEDS: MONTELUKAST SOD 10 MG TAB PO SCH (09:07)
[2016-10-09] MEDS: METOPROLOL TARTRATE 25 MG TAB PO SCH (09:07)
[2016-10-09] MEDS ORDERED: METOPROLOL TARTRATE 25 MG TAB PO ONE (09:45)
--- NOTE | 2016-10-09 10:04 | PROGRESS NOTE ---
DATE: 10/09/2016 FOLLOWUP VISIT SUBJECTIVE: The patient is a 56-year-old female, who presented with new onset atrial fibrillation and RVR. Cardiac markers after admission have been negative. Her echocardiogram does not show any significant valvular pathology and she has normal biventricular function. After admission, she was started on intravenous heparin and a diltiazem infusion, which has improved her heart rate and her symptoms, but she remains in persistent atrial fibrillation. We started to add metoprolol yesterday and I will increase the dose today with anticipation of weaning her from the diltiazem. At this point, it is unlikely that she will cardiovert on her own and I will arrange for a GALINA cardioversion in the morning. I am hopeful that she will return to sinus rhythm without having to start antiarrhythmic medications and hopefully, she will be able to go home on a beta-susana and a DOAC. Notice that her thyroid function studies were negative. OBJECTIVE: VITAL SIGNS: Pulse is irregular at 90 beats per minute. Blood pressure is 110/70. She is afebrile. GENERAL: She is alert and oriented, in no acute distress. HEENT: She is normocephalic. Pupils are equal and reactive to light. Extraocular muscles are intact bilaterally. NECK: The neck veins are flat. Carotids have good upstrokes bilaterally without bruits. Thyroid is nonpalpable. RESPIRATORY: Breath sounds equal bilaterally and clear to auscultation. CARDIOVASCULAR: Heart has an irregular rhythm. Normal S1, S2, no S3, S4. No cardiac rubs or murmurs. GASTROINTESTINAL: Abdomen is soft, nontender without organomegaly. EXTREMITIES: Free of edema, digit clubbing or cyanosis. NEUROLOGIC: Grossly intact. SKIN: Warm to touch. LYMPH NODES: Negative to palpation. LABORATORY DATA: Per the history of chief complaint, in addition, the patient had an overnight oximeter that I felt this shows significant desaturation and she, therefore, is unlikely to have sleep apnea. IMPRESSION: Persistent atrial fibrillation. RECOMMENDATIONS: As outlined above, the plan will be to proceed with GALINA cardioversion in the morning, if the patient does not spontaneously convert on her own. MTDD
--- NOTE | 2016-10-09 14:35 | Anesthesiology Progress Note ---
Pre-OP Anesthesia Assessment Date of Note Oct 09, 2016. Review patient information reviewed, chart reviewed, labs reviewed, acceptable for surgery Notes I saw this pt for pre-op eval for GALINA/cardioversion tomorrow. She presented w/ SOB and was found to be in new onset a. fib. w/ RVR. She was started on heparin and diltiazem drips. Her rate is now controlled and she feels much better. PMH significant only for morbid obesity, HTN, and asthma (very needs albuterol). On exam, she was walking the halls in no distress. Afebrile w/ stable vitals. Airway exam reassuring. Heart irregular, normal rate, w/ no murmurs. Lungs clear. Labs normal. EKG shows a. fib. w/ vent. rate of 78, low voltage, inferior infarct. TTE completely normal. CXR normal. I explained IV sedation to her and consented her for it. She'll be NPO after midnight except sips of water w/ meds.
--- NOTE | 2016-10-09 15:36 | Progress Note ---
Medicine Progress Note Date & Time of Visit: Oct 09, 2016 at 15:32. Subjective Patient seen and examined. Can feel palpitations with elevated heart rate. Objective Last 8 Hrs Date Time Temp Pulse Resp B/P Pulse Ox O2 Delivery O2 Flow Rate FiO2 10/09/16 12:00 Room Air 10/09/16 10:55 36.7 94 20 105/70 97 Room Air 10/09/16 10:12 113/73 10/09/16 08:00 Room Air 10/09/16 07:47 36.9 79 20 101/69 95 Room Air Physical Exam: General-awake; alert; NAD Eyes-EOMI; no scleral icterus Neck-no stridor; trachea midline Lungs-CTA bilaterally; no wheezes/crackles Heart-irregularly irregular; no m/r/g Abdomen-soft; NTND; nBS Extremities-no c/c/e; no deformity Neuro-no focal deficits Laboratory Results: Last 24 Hours Test 10/08/16 17:05 10/08/16 21:00 10/08/16 21:05 10/09/16 00:54 Activated Partial Thromboplast Time 76.9 SECONDS 59.7 SECONDS Partial Thromboplastin Ratio 3.0 2.3 Creatine Kinase MB Ratio Creatine Kinase MB < 0.5 ng/ml Troponin I < 0.015 ng/ml Test 10/09/16 07:20 White Blood Count 6.63 K/uL Red Blood Count 5.18 M/uL Hemoglobin 15.6 g/dL Hematocrit 46.3 % Mean Corpuscular Volume 89.4 fL Mean Corpuscular Hemoglobin 30.1 pg Mean Corpuscular Hemoglobin Concent 33.7 g/dl RDW Standard Deviation 43.8 fL RDW Coefficient of Variation 13.3 % Platelet Count 265 K/uL Mean Platelet Volume 9.2 fL Activated Partial Thromboplast Time 55.7 SECONDS Partial Thromboplastin Ratio 2.1 Sodium Level 141 mmol/L Potassium Level 3.8 mmol/L Chloride Level 108 mmol/L Carbon Dioxide Level 26 mmol/L Anion Gap 7.0 mmol/L Blood Urea Nitrogen 14 mg/dl Creatinine 0.84 mg/dl Est Creatinine Clear Calc Drug Dose 107.0 ml/min Estimated GFR () 91.3 Estimated GFR (Non- 78.8 BUN/Creatinine Ratio 17.0 Random Glucose 108 mg/dl Calcium Level 8.8 mg/dl Assessment & Plan NEW ONSET ATRIAL FIBRILLATION WITH RVR - heart rate improved with diltiazem infusion - no clear causative factor identified - electrolytes and TSH WNL, no infectious sources - continue heparin drip - CHADS2 - 1 (HTN) - cardiac enzymes negative - TTE normal - cardiology consulted - metoprolol started - plan for GALINA cardioversion tomorrow morning HTN - hypertensive on arrival - improved with diltiazem - metoprolol started - hold Maxzide for now OBESITY - BMI 44.5 - AHA diet DVT PROPHYLAXIS - on heparin gtt Consultants: Cardiology Procedures: TTE * There is normal left ventricular wall thickness. * Left ventricular systolic function is normal. * Ejection Fraction = 60-65%. * The right ventricular systolic function is normal. * The left atrial size is normal. * Right atrial size is normal. * No significant valvular pathology. Current Inpatient Medications: Current Inpatient Medications Medications (Trade) Dose Ordered Sig/Turner Route Start Time Stop Time Status Last Admin Dose Admin Diltiazem HCl/ Dextrose (Cardizem Inj/D5 100ml) 125 ml @ 0 mls/hr Q0M PRN IV 10/08/16 10:00 11/07/16 09:59 10/09/16 02:11 10 MLS/HR Acetaminophen (Tylenol Tab) 650 mg Q4H PRN PO 10/08/16 10:45 11/07/16 10:44 10/08/16 16:48 650 MG Ondansetron HCl 4 mg 4 mg Q6H PRN IV 10/08/16 10:45 11/07/16 10:44 Heparin Sodium/ Dextrose (Heparin 25,000 Unit/500ml D5W) 500 ml @ 28 mls/hr [id number] PRN IV 10/08/16 18:30 11/07/16 18:29 10/09/16 04:01 28 MLS/HR Montelukast Sodium (Singulair Tab) 10 mg DAILY PO 10/09/16 09:00 11/08/16 08:59 10/09/16 09:07 10 MG Metoprolol Tartrate (Lopressor Tab) 25 mg BID PO 10/09/16 21:00 11/08/16 20:59
[2016-10-09] MEDS ORDERED: WARFARIN SOD 5 MG TAB PO ONE (17:45)
--- NOTE | 2016-10-09 19:57 | Anesthesiology Progress Note ---
Pre-OP Anesthesia Assessment Date of Note Oct 09, 2016. Review patient information reviewed, chart reviewed, labs reviewed, acceptable for surgery Notes The patient was seen and evaluated , the chart reviewed. She is acceptable for her GALINA cardioversion tomorrow.
[2016-10-09] MEDS ORDERED: METOPROLOL TARTRATE 25 MG TAB PO SCH (21:00)
[2016-10-10] VITALS (10 sets, daily range): BP systolic 107–139; BP diastolic 72–85; PULSE 72–113; TEMP 36.6–36.7; O2SAT 93–98
[2016-10-10] MEDS ORDERED: PROPOFOL IV EMULSION 10 MG/ML 20 ML VIAL IV ONE (07:12)
[2016-10-10] MEDS ORDERED: KETAMINE HCL INJ 50 MG/ML 10 ML VIAL ONE (07:12)
[2016-10-10] MEDS ORDERED: MIDAZOLAM HCL 1 MG/ML 2ML VIAL ONE (07:12)
[2016-10-10] MEDS ORDERED: LIDOCAINE HCL 2% 2 ML VIAL (20MG/ML) ONE (07:22)
[2016-10-10 07:42] LABS: INR 1.1 (0.9-1.1); PROTHROMBIN TIME (PATIENT) 11.4 SECONDS (9.0-12.0)
--- NOTE | 2016-10-10 08:05 | Cardiology Procedure Brief Nt ---
Preliminary Cardiology Note Procedure Date Oct 10, 2016. Pre-Procedure Diagnosis symptomatic atrial fibrillation Post-Procedure Diagnosis NO LA or RITO thrombus, successful conversion to SR Procedure(s) Performed GALINA , DCCV, sedation administered by anesthesia Through Operator Pascale Davenport DO Garment Manufacturing Supervisor(s) DIANA Rodriguez Estimated Blood Loss none Preliminary Findings No left atrial or left atrial appendage thrombus. Successful conversion from AF to SR with 300 J of biphasic energy. Recommendations Continue heparin bridge, coumadin initiation. Plan to reassess pt on floor and discuss metoprolol therapy versus sotalol therapy. Anesthesia Versid 2 mg IV, Propofol 50 mg IV, Ketamine 15 mg IV Complication(s) None Disposition PCU
--- NOTE | 2016-10-10 08:19 | CARDIOVERSION ---
DATE OF OPERATION: 10/10/2016 PREPROCEDURE DIAGNOSIS: Symptomatic atrial fibrillation. POSTOPERATIVE DIAGNOSIS: No left atrial or left atrial appendage thrombus. Successful conversion to sinus rhythm. PROCEDURES PERFORMED: Focused transesophageal echocardiogram to assess left atrium and left atrial appendage, direct current cardioversion, sedation administered by Dr. Mayes of anesthesia. INSPECTOR CHIEF: Dr. Migue Davenport DO. SUPERVISOR PRODUCTION MANAGING: Kanwal Crowell, registered zipper setter chainstitch. PRELIMINARY FINDINGS: After informed consent was obtained and time out was performed the patient was sedated with the assistance of anesthesia receiving a total of Versed 2 mg IV, propofol 50 mg IV, and ketamine 15 mg IV. A focused transesophageal echocardiogram study was performed to evaluate the left atrium and left atrial appendage. The left atrial appendage was well visualized with no evidence of thrombus. The patient then underwent successful synchronized direct current cardioversion receiving 300 joules of biphasic energy with successful conversion to sinus rhythm. RECOMMENDATIONS: The patient is to continue heparin bridge, Coumadin initiation. I plan to reassess patient on the telemetry floor later this morning and discuss metoprolol therapy versus sotalol therapy. COMPLICATIONS: None. DISPOSITION: PCU. I attest to the content of the Intraoperative Record and any orders documented therein. Any exceptions are noted below. MTDD
--- NOTE | 2016-10-10 08:42 | Anesthesiology Progress Note ---
Anesthesia Post Op Note Date & Time Oct 10, 2016 at 08:41 Vital Signs Pain Intensity: 0 Vital Signs Past 12 Hours Date Time Temp Pulse Resp B/P Pulse Ox O2 Delivery O2 Flow Rate FiO2 10/10/16 08:15 74 16 128/80 96 Room Air 10/10/16 08:05 78 16 122/77 94 Room Air 10/10/16 07:55 78 16 120/76 98 Room Air 10/10/16 07:55 113 16 124/75 98 Room Air 10/10/16 07:50 113 16 131/72 96 Nasal Cannula 6 10/10/16 07:48 113 16 122/84 96 Nasal Cannula 6 10/10/16 07:45 105 16 132/82 96 Nasal Cannula 6 10/10/16 07:42 100 16 139/80 96 Nasal Cannula 4 10/10/16 07:40 100 16 131/85 96 Nasal Cannula 4 10/10/16 04:00 36.7 91 113/75 95 Room Air 10/10/16 04:00 95 Room Air 10/10/16 00:00 96 Room Air 10/09/16 23:18 36.6 87 18 106/71 96 Room Air 10/09/16 21:03 94 126/78 Notes Mental Status: alert / awake / arousable, participated in evaluation Pt Amnestic to Procedure: Yes Nausea / Vomiting: adequately controlled Pain: adequately controlled Airway Patency, RR, SpO2: stable & adequate BP & HR: stable & adequate Hydration State: stable & adequate Anesthetic Complications: no major complications apparent
[2016-10-10] MEDS ORDERED: EpHEDrine SULFATE INJ 50 MG/ML AMP IV PRN (08:45)
[2016-10-10] MEDS ORDERED: ATROPINE SULFATE 0.1 MG/ML 5ML SYR IV PRN (08:45)
[2016-10-10] MEDS: MONTELUKAST SOD 10 MG TAB PO SCH (08:52)
[2016-10-10] MEDS ORDERED: SOTALOL HCL 80 MG TAB PO SCH (09:00)
[2016-10-10] MEDS ORDERED: APIXABAN 2.5 MG TAB PO ONE (11:01)
--- NOTE | 2016-10-10 11:16 | Cardiology Follow-Up ---
Subjective General Date of Service: Oct 10, 2016. Chief Complaint: follow up exertional shortness of breath Pt evaluation today including: conversation w/ patient, conversation w/ family , physical exam History of Present Illness The patient is a 56 year old female seen in cardiology follow-up today prior to , during, and post recurrent cardioversion. The patient describes having presented to the hospital 2 days ago new-onset shortness of breath and sensation of racing heart rate. She was tightness with atrial fibrillation with rapid ventricular rate which was a new finding for her. She has a previous history of hypertension for which she has been on triamterene /or thiazide and her blood pressures have been controlled as an outpatient. The patient's atrial fibrillation was refractory to medications including oral metoprolol and IV diltiazem and therefore she underwent transesophageal echocardiogram guided direct-current cardioversion this morning with successful conversion to sinus rhythm. The patient feels much improved since conversion to sinus rhythm and remains in sinus rhythm post procedure. Her post procedure EKG revealed sinus rhythm with normal corrected QT interval. Allergies Coded Allergies: Penicillins (Verified Allergy, Intermediate, rash, 10/09/16) Sulfa Antibiotics (Verified Adverse Reaction, Intermediate, GI UPSET, 10/09) Social History Smoking Status: Never Smoker Hx Tobacco Use In Past Year?: No Hx Alcohol Use - Type And Amou: No Hx Substance Use - Type And Am: No Problem List Medical Problems: (1) Atrial fibrillation with rapid ventricular response Status: Acute Physical Exam Vital Signs Last Vital Signs Documentation Date Time Temp Pulse Resp B/P Pulse Ox O2 Delivery O2 Flow Rate FiO2 10/10/16 08:15 74 16 128/80 96 Room Air 10/10/16 07:50 6 10/10/16 04:00 36.7 Physical Exam Constitutional: Level of Distress: NAD Head: normocephalic Neck: supple Lungs: Auscultation: no wheezing, no rales/crackles Cardiovascular: Heart Auscultation: normal S1, no murmurs, no rubs, no gallops Abdomen: Inspection & Palpation: soft Extremities: no cyanosis, no edema, no varicosities Neurologic: Gait & Station: pertinent finding (no focal deficits) Assessment and Plan Assessment and Plan Impression: 56-year-old female 1. Newly diagnosed non valvular atrial fibrillation, this was persistent until patient underwent direct-current cardioversion. 2. Past history of hypertension 3. No structural heart disease on resting echocardiogram with normal biventricular systolic function, normal atrial chamber size, normal myocardial thickness, no significant valvular heart disease 4. CHADSVASC score of 2 for female sex and HTN, moderate risk of cardioembolic stroke. Plan: Last evening, I had initiated the process of coming up with a terminal makeup operator anticoagulation plan for the patient. I called in a prescription for Eliquis to her outpatient pharmacy and it was cost prohibitive with a $300 per month co- pay. I then called in a prescription for Xarelto and the pharmacist reported that there was a $300 per month co-pay. I therefore prescribed Coumadin overnight last night and plan to anticoagulate her with Coumadin in the future. On further discussion with the patient today she states that she recently changed insurance companies and had a new pharmacy card. With the help of nursing I submitted her new pharmacy card information to her outpatient pharmacy and received confirmation that Eliquis would be available for a $45 per month co-pay. The patient states that this would be an acceptable cost. Therefore I'm going to discontinue her heparin start Eliquis. Regarding ongoing rhythm therapy. I have debated transitioning her to sotalol for rhythm control and she received a dose this morning post cardioversion. The patient however is somewhat anxious to be discharged from the hospital and since this is her first episode of atrial fibrillation, I think that ongoing therapy with metoprolol tartrate 25 twice a day is a reasonable alternative to start with. Upon review of her echocardiogram she has no significant underlying structural heart disease, and if she requires antiarrhythmic therapy in the future, she would be a good candidate for flecainide plus susana as the next step if she has breakthrough atrial fibrillation on metoprolol. Summary: 1. Discontinue heparin, start Eliquis at the exact time that the heparin dose has been stopped. 2. Continue Eliquis 5 mg by mouth Q 12 hours, would have pt take dose #2 at 9 pm tonight and Q 12 hours from there. 3. Discharge on metoprolol tartrate 25 mg BID. 4. Stop prior to hospital Triamterene / HCTZ. Would recommend observing pt in the hospital on telemetry today until about 3 pm given GALINA CV this am, if doing well. DC to home then. Follow up with Dr Michelle in 2-4 weeks. Laboratory Results Last 24 Hours Test 10/10/16 06:52 Prothrombin Time 11.4 SECONDS Prothromb Time International Ratio 1.1 Activated Partial Thromboplast Time 50.9 SECONDS Partial Thromboplastin Ratio 2.0
[2016-10-10] MEDS ORDERED: APIX1TAB3 PO (11:48)
[2016-10-10] MEDS ORDERED: LPR25 PO (11:48)
--- NOTE | 2016-10-10 11:51 | Discharge Instructions ---
Discharge Instructions Date of Service Oct 10, 2016. Admission Reason for Admission: New Onset Atrial Fibrilation Discharge Discharge Diagnosis / Problem: Atrial fribrillation status post cardioversion Discharge Goals Goal(s): Improve disease control, Therapeutic intervention Activity Recommendations Activity Limitations: resume your previous activity . Instructions / Follow-Up Instructions / Follow-Up Please follow up with Family Medicine Dr. Syed on October 14 at 10:25am. Please follow up with Cardiology Dr. Michelle on October 21 at 9:25am. Please take your next dose of Apixaban (blood thinner) around 9:00pm tonight and then every 12 hours from there. You can take the metoprolol at the same time. Triamterene/HCTZ has been discontinued. Current Hospital Diet Patient's current hospital diet: AHA Diet (Heart Healthy) Discharge Diet Recommended Diet: AHA Diet (Heart Healthy) Pending Studies Studies pending at discharge: no Laboratory Results Hemoglobin A1c Test 10/08/16 09:10 Range/Units Estimated Average Glucose 105 mg/dl Hemoglobin A1c 5.3 4.5-5.6 % Medical Emergencies . Who to Call and When: Medical Emergencies: If at any time you feel your situation is an emergency, please call 911 immediately. . Non-Emergent Contact Non-Emergency issues call your: Primary Care Provider . . "Provider Documentation" section prepared by Hayley Causey. . VTE Core Measure Inpt VTE Proph given/why not?: Other Anticoagulation
--- NOTE | 2016-10-10 13:16 | TEE ---
*NOTICE TO RECEIVING DEMOCRAT AGENCY This information is strictly Confidential and protected under [place] law. [place] law prohibits you from making any further disclosure of this information unless further disclosure is expressly permitted by the written consent of the person to whom it pertains or is authorized by law. A general authorization for the release of medical or other information is not sufficient for this purpose. Hospital accepts no responsibility if the information is made available to any other person, INCLUDING THE PATIENT. Interpretation Summary * Name: ERICK MAURO Study Date: 10/10/2016 07:27 AM * Patient Location: C.2T\S\S241\S\2 HR: 117 * : 1960 (M/d/yyyy) Gender: Female Height: 67 in * Age: 56 yrs Ethnicity: CA Weight: 283 lb * Ordering Physician: Harish Michelle * Referring Physician: Zayda Syed * Performed By: Kanwal Crowell RCS * * Reason For Study: A-FIB * BSA: 2.3 m2 * -- Conclusions -- * A focused study was performed to assess the left atrial appendage and left atrium prior to cardioversion. * Limited views were obtained in order to limit the total amount of sedation time necessary for the procedure. * The left atrial size is normal. * No left atrial mass or thrombus visualized. * No thrombus is detected in the left atrial appendage. Procedure Details * GALINA Probe #3 was utilized for the procedure. Time Out: 0740 Probe In: 0742 Probe Out: 0748 50 mg of Propofol was administered for sedation. 15 mg of Ketamine was administered for sedation. 40 mg Lidocaine was administered for sedation. * The study was performed in Cardiac Catheterization Lab. * Time out was conducted by the physician, nurse, and technical operator with positive identification of patient and procedure. * Informed consent for Transesophageal Echocardiogram was obtained prior to the procedure. * An intravenous line was placed. A topical anesthetic agent was used for oropharangeal anesthesia. A bite block was inserted. * Sedation performed by the anesthesia department. * Midazolam 2 mg administered for sedation. * The posterior oropharynx was anesthetized using a topical anesthetic spray. A bite guard was inserted. * A multifrequency, multiplane transesopheageal echocardiographic endoscope was inserted and manipulated in the standard fashion to achieve multiplane views. * The transesophageal probe was passed without difficulty. * Limited views were obtained. * The patient tolerated the procedure well without evidence of orophangeal or esophageal trauma. * Limited views were obtained. Atria * The left atrial size is normal. * No left atrial mass or thrombus visualized. * No thrombus is detected in the left atrial appendage. * Right atrial size is normal. * The interatrial septum was not assessed. Mitral Valve * The mitral valve anatomy is normal. * There is no mitral valve prolapse present. * There is no vegetation seen on the mitral valve. * There is no mitral valve stenosis. * Mitral regurgitation was note assessed. Aortic Valve * Aortic stenosis is absent. Great Vessels * The aortic root is normal size. MMode 2D Measurements and Calculations Ao root diam 3.5 cm Ao root area 9.6 cm\S\2
[2016-10-10] MEDS ORDERED: WARFARIN SOD 10 MG TAB PO SCH (16:00)
[2016-10-10] MEDS ORDERED: WARFARIN SOD 5 MG TAB PO SCH (16:00)
--- NOTE | 2016-10-10 16:06 | Discharge Summary ---
Discharge Summary Date of Service Oct 10, 2016. Discharge Summary Admission Date: Oct 08, 2016 at 10:36 Discharge Date: Oct 10, 2016 Discharge Disposition: Home Principal Diagnosis: Atrial fibrillation s/p cardioversion Procedures: TTE * There is normal left ventricular wall thickness. * Left ventricular systolic function is normal. * Ejection Fraction = 60-65%. * The right ventricular systolic function is normal. * The left atrial size is normal. * Right atrial size is normal. * No significant valvular pathology. Consultations: Cardiology Medication Reconciliation New Medications: Apixaban (Eliquis) 5 Mg Tab 5 MG PO BID for 30 Days, #60 TAB Metoprolol Tartrate (Lopressor) 25 Mg Tab 25 MG PO BID for 30 Days, #60 TAB Continued Medications: Albuterol Sulfate (Proair Respiclick) 108 Mcg/Act Aer 2 PUFF INH Q4H PRN for SOB/Wheezing Montelukast Sodium (Singulair) 10 Mg Tab 1 TAB PO DAILY for 90 Days, #90 TAB 1 Refill Discontinued Medications: Triamterene/Hctz (Triamterene/Hctz 37.5-25MG) 1 Tab Tab 1 TAB PO DAILY for 30 Days, #30 TAB 5 Refills Admission Information HPI (per Admitting provider): 56 year old female who presents to the ER with palpitations and shortness of breath. Patient reports that over the past one month she has noted increasing exertional shortness of breath and decreased activity tolerance. This morning when she woke up she reports she was having palpitations. She continued to get ready and went to work. She reports that while walking into work she felt short of breath and palpitations got worse. She also had associated diaphoresis and lightheadedness. She called her PCP who referred her to the ER for further evaluation. She denies chest pain and pressure. No syncopal events. She denies abdominal pain, nausea, vomiting, or diarrhea. Reports last week she had mild post nasal drip. She denies fever, chills, cough, and sputum production. In the ER, patient was found to be in rapid atrial fibrillation with rates in the 170s. She was given Cardizem bolus 20mg and then started on drip. Rates are now in the 120s. Patient reports improved in her symptoms. Physical Exam (per Admitting): General Appearance: no apparent distress Head: normocephalic Eyes: normal inspection ENT: hearing grossly normal Neck: supple, no JVD Respiratory/Chest: lungs clear, normal breath sounds, no respiratory distress Cardiovascular: no edema, + tachycardia, + irregularly irregular Abdomen/GI: normal bowel sounds, non tender, soft Extremities/Musculoskelatal: normal inspection, no calf tenderness Neurologic/Psych: no motor/sensory deficits, alert, normal mood/affect, oriented x 3 Skin: normal color, warm/dry Hospital Course Patient was admitted with new onset atrial fibrillation in RVR. Cardiology was consulted. Patient was started on diltiazem and heparin drips. Electrolytes and TSH were normal. There was no evidence of infection. TTE was normal. Cardiac enzymes were negative. Patient was cardioverted on 10/10 with successful return to sinus rhythm. Patient was started on metoprolol and apixaban. Maxzide was discontinued. Patient deemed stable for discharge with Family Medicine and Cardiology follow up. PE on discharge: General- awake; alert; NAD Eyes- EOMI; no scleral icterus Neck- no stridor; trachea midline Lungs- CTA bilaterally; no wheezes/crackles Heart- RRR; no m/r/g Abdomen- soft; NTND; nBS Back- no gross abnormalities Extremities- no c/c/e; no deformity Neuro- no focal deficits Skin- no appreciable rash . Total time spent on discharge = This includes examination of the patient, discharge planning, medication reconciliation, and communication with other providers. Discharge Instructions Discharge Instructions Date of Service Oct 10, 2016. Admission Reason for Admission: New Onset Atrial Fibrilation Discharge Discharge Diagnosis / Problem: Atrial fribrillation status post cardioversion Discharge Goals Goal(s): Improve disease control, Therapeutic intervention Activity Recommendations Activity Limitations: resume your previous activity . Instructions / Follow-Up Instructions / Follow-Up Please follow up with Family Medicine Dr. Syed on October 14 at 10:25am. Please follow up with Cardiology Dr. Michelle on October 21 at 9:25am. Please take your next dose of Apixaban (blood thinner) around 9:00pm tonight and then every 12 hours from there. You can take the metoprolol at the same time. Triamterene/HCTZ has been discontinued. Current Hospital Diet Patient's current hospital diet: AHA Diet (Heart Healthy) Discharge Diet Recommended Diet: AHA Diet (Heart Healthy) Pending Studies Studies pending at discharge: no Laboratory Results Hemoglobin A1c Test 10/08/16 09:10 Range/Units Estimated Average Glucose 105 mg/dl Hemoglobin A1c 5.3 4.5-5.6 % Medical Emergencies . Who to Call and When: Medical Emergencies: If at any time you feel your situation is an emergency, please call 911 immediately. . Non-Emergent Contact Non-Emergency issues call your: Primary Care Provider . . "Provider Documentation" section prepared by Hayley Causey. . VTE Core Measure Inpt VTE Proph given/why not?: Other Anticoagulation Additional Copies To Zayda Syed M.D.
[2016-10-10] MEDS ORDERED: APIXABAN 2.5 MG TAB PO SCH (21:00)
[2016-10-10] MEDS ORDERED: METOPROLOL TARTRATE 25 MG TAB PO SCH (21:00)
[2017-02-03] MEDS ORDERED: VNTHFA/IN INH (11:04)
[2017-02-03] MEDS ORDERED: MONT1TAB3 PO (11:04)
[2017-02-03] MEDS ORDERED: FLVHFA110 INH (11:04)
[2017-02-03] MEDS ORDERED: CLR10 PO (11:04)
[2017-02-03] MEDS ORDERED: APIX1TAB3 PO (11:04)
[2017-02-03] MEDS ORDERED: DILT-113 PO (11:04)
[2017-02-03] MEDS ORDERED: HYDR12.55 PO (11:04)
== END 2016-10-10 16:36 | disposition home or self-care (01) | DRG 309 ==
LOC: ENRESERVDT → ENRESERVTM → C.EDB 08:45 → C.2T 10:36
PROVIDERS: ADMIT Internal Medicine; ATTEND Internal Medicine
PROC: 5A2204Z Restoration of Cardiac Rhythm, Single (ICD-10-PCS; principal; 2016-10-10 07:45)
DX: I48.1 Persistent atrial fibrillation (principal); Z68.44 Body mass index [BMI] 60.0-69.9, adult; I10 Essential (primary) hypertension; J45.909 Unspecified asthma, uncomplicated; E66.01 Morbid (severe) obesity due to excess calories; Z79.899 Other long term (current) drug therapy

== ENCOUNTER → 2017-02-04 | Day surgery (SDC) | payer BC ==
[2017-02-03 11:06] VITALS: BMI 44.0
[~2017-02-04] VITALS: Ht 170.2 cm; Wt 127.3 kg
[~2017-02-04] MED LIST: APIX1TAB3 PO; CLR10 PO; DILT-113 PO; FLVHFA110 INH; HYDR12.55 PO; MONT1TAB3 PO; SODIUM CHLORIDE 0.9% 500ML 500 ML IV ONE; VNTHFA/IN INH
[2017-02-04 12:54] VITALS: Ht 170.2 cm; Wt 127.3 kg
--- NOTE | 2017-02-04 13:19 | Endo History and Physical ---
History & Physical Date of Service: Feb 04, 2017. Chief Complaint: HISTORY OF POLYPS Referring Physician: CHRIS WELLS History of Present Illness family history of colon cancer (brother in his 50's) History of polyps - last colo 5 years ago Past Surgical History Hx Cardiac Surgery: Yes (CARDIOVERSION) Hx Internal Defibrillator: No Hx Pacemaker: No Hx Abdominal Surgery: Yes (TUBAL LIGATION) Hx of Implantable Prosthesis: No Hx Post-Op Nausea and Vomiting: Yes Hx Cancer Surgery: Yes (FACIAL EXCISION) Hx Thoracic Surgery: No Hx Orthopedic: No Hx Urinary Tract Surgery: No Family History Colon CA, Polyp Social History Smoking Status: Never Smoker Hx Substance Use: No Hx Alcohol Use: Yes (RARELY) Allergies Coded Allergies: Penicillins (Verified Allergy, Intermediate, rash, 02/04/17) Sulfa Antibiotics (Verified Adverse Reaction, Intermediate, GI UPSET, 02/04) Current Medications Reported Home Medications Medications Dose Route/Sig Max Daily Dose Days Date Category Singulair (Montelukast Sodium) 10 Mg Tab 10 Mg PO QAM 02/03/17 Reported Ventolin Hfa (Albuterol) 200 Puffs/75220 Mcg Aers 2-4 Puffs INH Q6H PRN 02/03/17 Reported Claritin (Loratadine) 10 Mg Tab 10 Mg PO QAM 02/03/17 Reported Flovent Hfa (Fluticasone Propionate) 120 Puffs/52204 Mcg Aero 2 Puffs INH BID PRN 30 02/03/17 Reported Tiazac (Diltiazem HCl) 180 Mg Capcr 180 Mg PO QAM 02/03/17 Reported Hydrochlorothiazide 12.5 Mg Tab 1 Tab PO QAM 90 02/03/17 Reported Eliquis (Apixaban) 5 Mg Tab 5 Mg PO QAM 02/03/17 Reported Vital Signs Weight (Kilograms): 127.27 Height (Feet): 5 Height (Inches): 7 Physical Exam General Appearance: WD/WN, no apparent distress Assessment and Plan colonoscopy today
--- NOTE | 2017-02-04 14:06 | Discharge Instructions ---
Endoscopy Patient Instructions Date / Procedure(s) Performed Feb 04, 2017. Colonoscopy Allergy Information Coded Allergies: Penicillins (Verified Allergy, Intermediate, rash, 02/04/17) Sulfa Antibiotics (Verified Adverse Reaction, Intermediate, GI UPSET, 02/04) Discharge Date / Findings Feb 04, 2017. small polyp Medication Instructions Stopped Medication(s): ELIQUIS STOPPED YESTERDAY...A-FIB Restart Stopped Medication(s): OK to resume all home medications Provider Instructions Activity Restrictions - No exercising or heavy lifting for 24 hours. - Do not drink alcohol the day of the procedure. - Do not drive a car or operate machinery until the day after the procedure. - Do not make any important decisions or sign important papers in 24 hours after the procedure. Following Day: - Return to full activity which may include returning to work/school. Diet Start your diet with liquids and light foods (jello, soup, juice, toast). Then eat your usual diet if not nauseated. Treatment For Common After Affects For mild abdominal pain, bloating, or excessive gas: - Rest - Eat lightly - Lie on right side Follow-Up Information Follow-up with CHRIS WELLS as scheduled Anesthesia Information What You Should Know You have had a procedure that required some medicine to reduce anxiety and discomfort. This treatment is called moderate sedation. After receiving the treatment, you may be sleepy, but you will be able to breathe on your own. The effects of the treatment may last for several hours. Follow these instructions along with Activity/Diet recommendations noted above: * Do NOT do anything where dizziness or clumsiness would be dangerous. * Rest quietly at home today, then you can be up and about tomorrow. * Have a responsible person stay with you the rest of today. * You may have had an I.V. today. If so, you may take the dressing off later today. Recommendations Call your doctor if: * Trouble breathing * Continuous vomiting for more than 24 hours * Temperature above 101 degrees * Severe abdominal pain or bloating * Pain not relieved by pain medicine ordered * There is increased drainage or redness from any incision * A large amount of rectal bleeding greater than 2-3 tablespoons. (If you had a polyp/s removed or have hemorrhoids, a small amount of blood - from the rectum is to be expected.) * You have any unanswered questions or concerns. IN THE EVENT OF A SERIOUS EMERGENCY, GO TO THE NEAREST EMERGENCY ROOM Your discharge instructions were prepared by provider Rose Meraz. Patient Instructions Signature Page Carley Garcia Patient (or Guardian) Signature/Date: I have read and understand the instructions given to me by my caregivers. Caregiver/RN/Doctor Signature/Date: The above-named patient and/or guardian has received patient instructions on this date. + Original Patient Signature Page (only) stays with chart. Please make copy for patient.
--- NOTE | 2017-02-04 14:06 | GI REPORT ---
Procedure Date: 02/04/2017 1:23 PM Procedure: Colonoscopy Indications: High risk colon cancer surveillance: Personal history of colonic polyps, Family history of colon cancer in brother in 50's Medicines: Propofol per Anesthesia Complications: No immediate complications. Estimated blood loss: Minimal. Estimated Blood Loss: Estimated blood loss was minimal. Procedure: Pre-Anesthesia Assessment: - Prior to the procedure, a History and Physical was performed, and patient medications, allergies and sensitivities were reviewed. The patient's tolerance of previous anesthesia was reviewed. - The risks and benefits of the procedure and the sedation options and risks were discussed with the patient. All questions were answered and informed consent was obtained. - Patient identification and proposed procedure were verified prior to the procedure by the physician and the nurse. The procedure was verified in the pre-procedure area in the procedure room. - Mental Status Examination: alert and oriented. Airway Examination: normal oropharyngeal airway and neck mobility. Respiratory Examination: clear to auscultation. CV Examination: normal. Abdominal Examination: bowel sounds present, abdomen soft and non-tender, no masses or organomegaly noted. - ASA Grade Assessment: II - A patient with mild systemic disease. After I obtained informed consent, the scope was passed under direct vision. Throughout the procedure, the patient's blood pressure, pulse, and oxygen saturations were monitored continuously. The scope was introduced through the anus and advanced to the terminal ileum. The colonoscopy was performed without difficulty. The patient tolerated the procedure well. The quality of the bowel preparation was good. Findings: The perianal and digital rectal examinations were normal. Pertinent negatives include normal sphincter tone and no palpable rectal lesions. The terminal ileum appeared normal. A 1 mm polyp was found in the sigmoid colon. The polyp was sessile. The polyp was removed with a cold snare. Resection and retrieval were complete. Verification of patient identification for the specimen was done by the physician and nurse using the patient's name and date. Estimated blood loss was minimal. The retroflexed view of the distal rectum and anal verge was normal and showed no anal or rectal abnormalities. Impression: - The examined portion of the ileum was normal. - One 1 mm polyp in the sigmoid colon, removed with a cold snare. Resected and retrieved. - The distal rectum and anal verge are normal on retroflexion view. Recommendation: - Await pathology results. - Repeat colonoscopy in 3 years for surveillance. - Return to referring physician as previously scheduled. - Discharge patient to home. Ruben Bradley, 02/04/2017 2:05:30 PM This report has been signed electronically. Note Initiated On: 02/04/2017 1:23 PM I attest to the content of the Intraoperative Record and orders documented therein, exceptions below
[2017-02-04 14:24] VITALS: BP 122/84; PULSE 73; O2SAT 98
--- NOTE | 2017-02-04 14:47 | Anesthesiology Progress Note ---
Anesthesia Post Op Note Date & Time Feb 04, 2017 at 14:47 Vital Signs Pain Intensity: 0 Vital Signs Past 12 Hours Date Time Temp Pulse Resp B/P (MAP) Pulse Ox O2 Delivery O2 Flow Rate FiO2 02/04/17 14:24 73 20 122/84 (97) 98 Room Air 02/04/17 14:09 70 20 123/83 (96) 96 Room Air 02/04/17 13:54 86 20 103/61 (75) 95 Room Air 02/04/17 13:15 37.1 62 20 111/76 (88) 97 Room Air Notes Mental Status: alert / awake / arousable, participated in evaluation Pt Amnestic to Procedure: Yes Nausea / Vomiting: adequately controlled Pain: adequately controlled Airway Patency, RR, SpO2: stable & adequate BP & HR: stable & adequate Hydration State: stable & adequate Anesthetic Complications: no major complications apparent
== END | disposition home or self-care (01) ==
LOC: C.GI 12:28
PROVIDERS: ATTEND Internal Medicine
DX: Z12.11 Encounter for screening for malignant neoplasm of colon (principal); D12.5 Benign neoplasm of sigmoid colon; Z86.010 Personal history of colon polyps; Z80.0 Family history of malignant neoplasm of digestive organs

== ENCOUNTER 2019-04-24 10:23 | Inpatient (IN) ==
--- OUTSIDE RECORDS SUMMARY | 2019-04-24 10:26 | External Medical Summary | Continuity of Care Document ---
:1960 Author Name Richar Dominguez Address Unavailable Unavailable , Care Team Providers Name Role Phone Chad Dominguez, I. Unavailable [email or web address] PCP, UNKNOWN Unavailable Unavailable Unavailable Unavailable Unavailable Problems Migraine headache (346.90) (G43.909) Hypercholesterolemia (272.0) (E78.00) Encounter for routine gynecological examination (V72.31) (Z0 1.419) Polyp of sigmoid colon (211.3) (D12.5) Asthma (493.90) (J45.909) History of allergy (V15.09) (Z88.9) Abnormal menses (626.9) (N92.6) Allergies and Adverse Reactions Penicillins (Allergy) Medications Wellbutrin SR TBCR Refills: 0 Elizabet TABS Refills: 0 Singulair TABS Refills: 0 Procedures History of Tubal Ligation Status: Comple eva History of Papanicolaou smear of cervix with atypical squamo us Status: Completed cells of undetermined significance (ASC-US) Immunizations Immunizations not documented Family History Brother Family history of Colon Cancer (V16.0) Status: Active Social History - Smoking Status Unknown if ever smoked Plan of Treatment Planned Observations Planned Goals not documented Results No Known Results Results not documented
[2019-04-24] MEDS ORDERED: SODIUM CHLORIDE 0.9% 1000ML 1,000 ML IV ONE (10:52)
[2019-04-24 10:54] LABS: Hematocrit (blood only) 46.6 % (37-47); Hemoglobin 16.4 g/dL (12.0-16.0); Mean Corpuscular Hemoglobin 31.5 pg (25-34); Mean Corpuscular Hgb Conc 35.2 g/dL (32-36); Mean Corpuscular Volume 89.6 fL (80-100); Mean Platelet Volume 9.4 fL (7.4-10.4); Platelet Count 256 K/uL (130-400); White Blood Count 6.39 K/uL (4.8-10.8)
[2019-04-24] MEDS ORDERED: dilTIAZem HCl 5 MG/ML 5 ML VIAL IV STA (10:56)
--- NOTE | 2019-04-24 11:01 | XRay Report ---
SINGLE VIEW CHEST CLINICAL HISTORY: Atypical chest pain. FINDINGS: An AP, portable, upright chest radiograph is compared to study dated 10/08/2016. The cardiom ediastinal silhouette is unremarkable. There is mild bibasilar atelectasis. The lungs and pleural spa fifi are otherwise clear. No pneumothorax is seen. The bony thorax is grossly intact. IMPRESSION: No active disease in the chest. Electronically signed by: Chandler Gutierrez M.D. 04/24/2019 10:59 AM
[2019-04-24 11:12] LABS: Alanine Aminotransferase 19 U/L (12-78); Albumin Level 2.9 gm/dl (3.4-5.0); Aspartate Aminotransferase 20 U/L (15-37); BUN Creatinine Ratio 16.9 (10-20); Blood Urea Nitrogen 17 mg/dl (7-18); Calcium 8.9 mg/dl (8.5-10.1); Carbon Dioxide 26 mmol/L (21-32); Chloride 107 mmol/L (98-107); Creatinine Clr Calc Pharmacy 88.7 ml/min; Est GFR (African American) 73.8; Est GFR (Non-African American) 63.7; Glucose 108 mg/dl (70-99); Lipase 120 U/L (73-393); Potassium 3.4 mmol/L (3.5-5.1); Sodium 139 mmol/L (136-145)
[2019-04-24] MEDS: dilTIAZem HCl 125 MG in DEXTROSE 5% 100 ML IV SCH ×2 (11:14→17:05)
[2019-04-24 11:16] LABS: Albumin Globulin Ratio 0.6 (0.9-2); Alkaline Phosphatase 88 U/L (45-117); Bilirubin,Total 0.4 mg/dl (0.2-1); Globulin 4.9 gm/dl (2.5-4.0); Total Protein 7.9 gm/dl (6.4-8.2); Troponin I < 0.015 ng/ml (0-0.045)
[2019-04-24 11:24] LABS: Basophils # (auto) 0.09 K/uL (0-0.2); Basophils % (auto) 1.4 %; Eosinophils # (auto) 0.21 K/uL (0-0.5); Eosinophils % (auto) 3.3 %; Immature Granulocytes # (auto) 0.01 K/uL (0.00-0.02); Immature Granulocytes % (auto) 0.2 %; Lymphocytes # (auto) 2.52 K/uL (1.2-3.4); Lymphocytes % (auto) 39.4 %; Monocytes # (auto) 0.76 K/uL (0.11-0.59); Monocytes % (auto) 11.9 %; Neutrophils % (auto) 43.8 %
[2019-04-24] MEDS ORDERED: POTASSIUM CHLORIDE 20 MEQ TABCR PO STA (12:11)
[2019-04-24] MEDS ORDERED: METOPROLOL TARTRATE 25 MG TAB PO STA (12:29)
--- NOTE | 2019-04-24 12:55 | History & Physical Report ---
Date of Service April 24, 2019 Assessment & Plan (1) Atrial fibrillation with RVR: This is a 58-year-old female who has significant PMH of paroxysmal A. fib anticoagulated on Eliquis, HTN, allergic rhinitis, asthma, morbid obesity who presents to [facility] secondary to A. fib starting at approximately 1 AM. In ED EKG revealed atrial fibrillation with RVR, heart rate 142. CBC relatively unremarkable, potassium low at 3.4, troponin WNL, mag WNL. Chest x-ray revealed no acute cardiopulmonary abnormality. She received 10 mg bolus of diltiazem and started on diltiazem drip. Received 1 L IVF. Admit to PCU continue diltiazem gtt - wean as able Start Metoprolol tartrate 12.5mg bid (first dose now) - pt previously on BB in past and didn't tolerate due to fatigue, will likely need titration of oral diltiazem but due to pt excess of diltiazem prior to arrival will remain of dilt gtt for now consult cardiology Dr. Amador replete potassium > 4.0 Mag normal check TSH likely in setting of URI vs OTC meds vs zpack (2) Hypokalemia: K 3.4 give 40meq KCL x 1 now repeat in a.m. (3) URI (upper respiratory infection): URI x 6 days Finished Zpack today has been taking OTC robitussin DM; Tessalon Perles continue supportive care, sx likely viral and improving Flu swab pending (4) HTN (hypertension): blood pressure stable continue triamterene/HCTZ monitor (5) Asthma, mild persistent: no acute exacerbation continue flovent, prn xopenex neb continue Singulair (6) DVT prophylaxis: Eliquis FULL CODE Disposition: admit to PCU; Discharge to home when able Follow up: PCP Dr. Syed upon discharge Patient was seen and examined in collaboration with Dr. Owens, please see addendum Starting 04/25/19 pt will be under the care of Dr. Downs History of Present Illness Chief Complaint: Afib since 1 a.m. Primary Care Provider: Zayda Syed MD This is a 58-year-old female who has significant PMH of paroxysmal A. fib anticoagulated on Eliquis, HTN, allergic rhinitis, asthma, morbid obesity who presents to [facility] secondary to A. fib starting at approximately 1 AM. 3 daughters are at bedside. For the past 6 days patient has been experiencing URI symptoms including dry cough, subjective fever, sinus congestion and rhinorrhea. She was prescribed a Z-Hima which she completed her last dose this morning. She has also been taking ctmq-afs-[id number] Robitussin-DM and Tessalon Perles. Approximately 2 days ago she felt her symptoms start to improve, but not completely go away. She was awoken at approximately 1 AM this morning with a coughing fit, felt her heart racing and her heartbeat to be irregular. Her heart rate was in the 140s. She took a dose of her diltiazem 180 mg. Symptoms persisted and approximately 3 hours later she took half a tablet equating to 90 mg. Further complains of weakness and fatigue therefore she presented to ED. After receiving treatment in ED currently she does feel much improved. Denies any current feeling of fevers, chills, sweats, lightheadedness, dizziness, chest pain, shortness of breath, orthopnea, PND, hemoptysis, nausea, vomiting, abdominal pain, change in her bowel or urinary habits. For the past several days she has had an overall decreased appetite due to not feeling well. Thought she may be dehydrated. She has been taking medications as prescribed and has not missed a single dose of Eliquis. In ED EKG revealed atrial fibrillation with RVR, heart rate 142. CBC relatively unremarkable, potassium low at 3.4, troponin WNL, mag WNL. Chest x-ray revealed no acute cardiopulmonary abnormality. She received 10 mg bolus of diltiazem and started on diltiazem drip. Received 1 L IVF. Allergies Allergy/AdvReac Type Severity Reaction Status Date / Time Penicillins Allergy Intermediate rash Verified 04/24/19 12:08 Sulfa (Sulfonamide AdvReac Intermediate GI UPSET Verified 04/24/19 12:08 Antibiotics) meperidine [From Demerol] AdvReac Mild n/v Verified 04/24/19 12:09 Androgenic Anabolic Steroid AdvReac Palpitation Unverified 04/24/19 12:08 s Home Medications Home Medications Medication Instructions Recorded Confirmed Type albuterol sulfate [Ventolin HFA] 2 puff INHALATION Q6H PRN #1 02/03/17 04/24/19 History inhaler fluticasone propionate [Flovent 1 puff INHALATION BID 30 Days #1 02/03/17 04/24/19 History HFA] inhaler apixaban [Eliquis] 5 mg PO BID 04/24/19 04/24/19 History diltiazem HCl 180 mg PO QAM 04/24/19 04/24/19 History loratadine [Claritin] 10 mg PO QAM 04/24/19 04/24/19 History montelukast 10 mg PO HS 04/24/19 04/24/19 History triamterene-hydrochlorothiazid 1 cap PO QAM 04/24/19 04/24/19 History Past Med/Surg History Medical History PAF (paroxysmal atrial fibrillation) Allergic rhinitis (Chronic) HTN (hypertension) (Chronic) Asthma, mild persistent (Chronic) Surgical History History of colonoscopy History of tubal ligation (Chronic) Family History Father Stroke Other Colorectal cancer Social History Preferred Language: Hungarian Communication Ability: Effective Current Living Situation: Family Current Living Situation Comment: Lives with 2 daughters Feels Safe at Home: Yes Smoking Status: Never smoker Hx Alcohol Use: Yes Alcohol Intake Frequency: Rarely Hx Substance Use: No Review of Systems Review of Systems: All systems reviewed & are unremarkable except as noted in HPI & below Physical Exam Physical Exam: Constitutional: WD/WN, morbid obese F, vitals as above, NAD, sitting up in bed, pleasant, conversing easily Head: Normocephalic, Atraumatic Eyes: PERRL, conjunctivae normal, anicteric sclerae ENMT: external ear and nose normal, oropharynx normal Neck: trachea midline, no thyromegaly normal visual inspection Respiratory: Clear to auscultation b/l, no audible wheeze/rale/rhonci, normal effort +cough dry noted during exam Cardiovascular: IRR/IRR, no edema Vessels: no JVD or carotid bruit Chest: normal inspection of chest Abdomen: normal bowel sounds, soft, nontender, no hepatosplenomegaly Musculoskeletal: no cyanosis or clubbing, extremities motor strength 5/5 Skin: no rashes, warm and dry normal turgor Neurologic: PERRL, EOMI, accommodation nl, no face palsy, no dysarthria CN's II-XI intact bilaterally and moves all extremities Psychiatric: A+Ox3, euthymic affect Lymphatic: no cervical or axillary lymphadenopathy : deferred Results & Data Vital Signs (Past 12 Hours) Vital Signs Temp Pulse Resp BP Pulse Ox 04/24/19 12:01 100 H 20 94 04/24/19 12:00 94 H 20 126/61 94 04/24/19 11:31 94 H 21 93 04/24/19 11:30 93 H 23 139/80 93 04/24/19 11:05 110 H 18 93 04/24/19 11:04 166 H 24 141/68 H 93 04/24/19 11:00 139 H 17 04/24/19 10:41 143 H 17 04/24/19 10:28 36.6 C 66 20 111/74 95 Laboratory Results Short CBC 04/24/19 Range/Units 10:45 WBC 6.39 (4.8-10.8) K/uL Hgb 16.4 H (12.0-16.0) g/dL Hct 46.6 (37-47) % Plt Count 256 (130-400) K/uL [facility] 04/24/19 10:45 Sodium 139 Potassium 3.4 L Chloride 107 Carbon Dioxide 26 BUN 17 Creatinine 0.99 Glucose 108 H Calcium 8.9 Cardiac Enzymes 04/24/19 Range/Units 10:45 Troponin I < 0.015 (0-0.045) ng/ml Liver Function 04/24/19 Range/Units 10:45 Total Bilirubin 0.4 (0.2-1) mg/dl AST 20 (15-37) U/L ALT 19 (12-78) U/L Alkaline Phosphatase 88 (45-117) U/L Albumin 2.9 L (3.4-5.0) gm/dl Diagnostic Findings CXR: No active disease Medications Administered Diltiazem HCl 125 mg/ Dextrose 125 mls @ 0 mls/hr IV .Q0M [facility]; Protocol Stop: 05/24/19 10:59 Last Admin: 04/24/19 11:14 Dose: 5 mg/hr, 5 mls/hr Documented by: [id number] Cosigned by: [id number] Discontinued Medications Diltiazem HCl (Cardizem) 10 mg IV NOW STA Stop: 04/24/19 10:57 Last Admin: 04/24/19 11:15 Dose: 10 mg Documented by: [id number] Cosigned by: [id number] Sodium Chloride (Nss 1000ml) 1,000 mls @ 999 mls/hr IV .Q1H1M ONE Stop: 04/24/19 11:52 Last Infusion: 04/24/19 12:17 Dose: 0 mls/hr Documented by: [id number] Admin: 04/24/19 11:15 Dose: 999 mls/hr Documented by: [id number] Potassium Chloride (Klor-Con M20) 40 meq PO NOW STA Stop: 04/24/19 12:12 Last Admin: 04/24/19 12:20 Dose: 40 meq Documented by: [id number] ECG Rate (beats per minute): 142 Rhythm: atrial fibrillation Code Status & VTE Plan Code Status Full Code VTE Prophylaxis Plan VTE Prophylaxis will be ordered: Yes Supervising Physician Co-Signing Physician Notes I, Dr. Roberto Owens, have seen and examined the patient with physician patient care assistant and would like to comment that: Carley Garcia is a patient who present with history of PAROXYSMAL ATRIAL FIBRILLATION who presents ATRIAL FIBRILLATION WITH RAPID VENTRICUAR RESPONSE after some days of UPPER RESPIRATORY INFECTION (URI) -Chest X ray: No active disease in the chest. Patient completed outpatient Z- Pack -patient denies use of nasal decongestants -atrial fibrillation with rapid ventricular response likely occurred around 1 AM today when patient felt palpitations -patient had taken her usual whole pill of Diltiazem 180 mg daily and another half pill to make a total of 270 mg total of Diltiazem prior to coming to the ED -ED presentation of heart rates in the 140s, patient was given IV fluids and started on Diltiazem drip -when examined by hospitalist team heart rates in the low 100s to high 90s and in irregular rhythm -discussed with patient about starting low dose metoprolol 12.5 mg BID to expedite the down titration of diltiazem drip -patient agrees however, patient has in the past had poor tolerance to metoprolol as fatigue -discussed with patient that admitting hospitalist team trying to utilize oral metoprolol as temporary measure to have patient transition off of IV rate control medications -will request cardiology consult -continue systemic anticoagulation with home dose Eliquis -will send TSH -patient reports influenza vaccination as outpatient -agree with physician patient care assistant on management of other health issues including HYPERTENSION and mild hypokalemia likely due to chronic use of triamterene/HCTZ diuretics for blood pressure control On physical exam: General: no acute distress, patient appears to be comfortable Neck: normal visual inspection Lungs: some cough, clear to auscultation bilaterally, no wheezing Heart: heart rates in the low 100s, irregular rhythm Abdomen: soft, nontender, positive bowel sounds Extremities: no edema My colleague Dr. Downs will be the hospitalist physician for the patient starting on 04/25/19
[2019-04-24] MEDS ORDERED: LEVALBUTEROL HCL 0.63 MG/3 ML NEB NEB PRN (14:30)
[2019-04-24] MEDS ORDERED: guaiFENesin 600 MG TABCR PO PRN (14:30)
[2019-04-24] MEDS ORDERED: ONDANSETRON INJ 2 MG/ML 2 ML VIAL IV PRN (14:30)
[2019-04-24] MEDS ORDERED: POLYETHYLENE (MIRALAX) 17 GM PACK PO PRN (14:30)
[2019-04-24] MEDS ORDERED: ACETAMINOPHEN 325 MG TAB PO PRN (14:30)
[2019-04-24] MEDS ORDERED: BENZONATATE 100 MG CAPSULE PO PRN (14:30)
[2019-04-24] MEDS ORDERED: ALUMINUM/MAGNESIUM SUSP 30 ML UDC PO PRN (14:30)
--- NOTE | 2019-04-24 16:42 | Emergency Department Note ---
Entered by Gosia Laws acting as a scribe for History of Present Illness General Chief complaint: Chest Pain Stated complaint: AFIB Source: patient History of Present Illness Onset (ago): hour(s) Location: head (Tachycardia) Severity: similar to prior episodes Pain Consistency: + other (Sudden) Maximum Pain Intensity: 0 Quality: + other (Tachycardia) Relieved By: not by medication (inhaler) Associated symptoms: + cough, + shortness of breath, + weakness and + other (Positive tachycardia, dizziness, light headed. Negative abdominal pain, rhinorrhea. ); no chest pain Treatments prior to arrival: other (inhaler) The patient is a 58 year old female presenting to the Emergency Department complaining of sudden tachycardia starting at 0100 today. The patient reports that she was in bed and noticed that her heart began to race. She states that she is now dizzy, light headed and feels weak. She explains that she is sometimes short of breath as she has been dealing with a dry cough for the past week. She notes that she used her inhaler N[employer] ASSISTANT for her symptoms which did not provide relief. The patient reports that she has experienced these symptoms before as she has had A-fib for a few years and has asthma. She notes that she regularly takes Diltiazem and Eliquis. She denies chest pain, abdominal pain and rhinorrhea. Home Medications Home Medications Medication Instructions Recorded Confirmed Type albuterol sulfate [Ventolin HFA] 2 puff INHALATION Q6H PRN #1 02/03/17 04/24/19 History inhaler fluticasone propionate [Flovent 1 puff INHALATION BID 30 Days #1 02/03/17 History HFA] inhaler apixaban [Eliquis] 5 mg PO BID 04/24/19 04/24/19 History diltiazem HCl 180 mg PO QAM 04/24/19 04/24/19 History loratadine [Claritin] 10 mg PO QAM 04/24/19 04/24/19 History montelukast 10 mg PO HS 04/24/19 04/24/19 History triamterene-hydrochlorothiazid 1 cap PO QAM 04/24/19 04/24/19 History Allergies Allergy/AdvReac Type Severity Reaction Status Date / Time Penicillins Allergy Intermediate rash Verified 04/24/19 12:08 Sulfa (Sulfonamide AdvReac Intermediate GI UPSET Verified 04/24/19 12:08 Antibiotics) meperidine [From Demerol] AdvReac Mild n/v Verified 04/24/19 12:09 Androgenic Anabolic Steroid AdvReac Palpitation Unverified 04/24/19 12:08 s Past Med/Surg History Medical History PAF (paroxysmal atrial fibrillation) Allergic rhinitis (Chronic) HTN (hypertension) (Chronic) Asthma, mild persistent (Chronic) Surgical History History of colonoscopy History of tubal ligation (Chronic) Family History Father Stroke Other Colorectal cancer Social History Preferred Language: Martiniquais Communication Ability: Effective Building Maintenance Worker Required: No Beliefs That Will Affect Care: None Current Living Situation: Family Current Living Situation Comment: Lives with 2 daughters Other Information That Helps Us Care for You: No Feels Safe at Home: Yes Safety Concerns: Feels Safe At This Time Smoking Status: Former smoker Hx Alcohol Use: Yes (rarely) Alcohol type: wine Alcohol Intake Frequency: Rarely Hx Substance Use: No Review of Systems See HPI for pertinent positives & negatives. and A total of 10 systems reviewed and were otherwise negative Physical Exam Vital Signs Vital Signs - 24 hr 04/24/19 10:28 04/24/19 10:41 04/24/19 11:00 Temperature 36.6 C Temperature Source Oral Sepsis Recent Fever Within 48 Hours No Sepsis Action Taken by Nursing No Action Required Pulse Rate 66 143 H 139 H Pulse Rate from SpO2 Sensor Pulse Rhythm Regular Pulse Strength Normal Respiratory Rate 20 17 17 Respiratory Effort / Characteristics Non-Labored Spontaneous Respiratory Depth Normal Respiratory Pattern Regular Blood Pressure 111/74 Blood Pressure Mean 86 Blood Pressure Position Sitting Pulse Oximetry 95 Oxygen Delivery Method Room Air 04/24/19 11:04 04/24/19 11:05 04/24/19 11:30 Temperature Temperature Source Sepsis Recent Fever Within 48 Hours Sepsis Action Taken by Nursing Pulse Rate 166 H 110 H 93 H Pulse Rate from SpO2 Sensor 92 H 79 109 H Pulse Rhythm Pulse Strength Respiratory Rate 24 18 23 Respiratory Effort / Characteristics Respiratory Depth Respiratory Pattern Blood Pressure 141/68 H 139/80 Blood Pressure Mean 92 99 Blood Pressure Position Pulse Oximetry 93 93 93 Oxygen Delivery Method 04/24/19 11:31 04/24/19 12:00 04/24/19 12:01 Temperature Temperature Source Sepsis Recent Fever Within 48 Hours Sepsis Action Taken by Nursing Pulse Rate 94 H 94 H 100 H Pulse Rate from SpO2 Sensor 91 H 98 H 93 H Pulse Rhythm Pulse Strength Respiratory Rate 21 20 20 Respiratory Effort / Characteristics Respiratory Depth Respiratory Pattern Blood Pressure 126/61 Blood Pressure Mean 82 Blood Pressure Position Pulse Oximetry 93 94 94 Oxygen Delivery Method 04/24/19 12:30 Temperature Temperature Source Sepsis Recent Fever Within 48 Hours Sepsis Action Taken by Nursing Pulse Rate 96 H Pulse Rate from SpO2 Sensor 92 H Pulse Rhythm Pulse Strength Respiratory Rate 15 Respiratory Effort / Characteristics Respiratory Depth Respiratory Pattern Blood Pressure 146/76 H Blood Pressure Mean 99 Blood Pressure Position Pulse Oximetry 96 Oxygen Delivery Method GENERAL: Patient is sitting up in bed with dry persistent cough. Alert, well nourished, no distress, non-toxic EYE EXAM: normal conjunctiva. OROPHARYNX: no exudate, no erythema, lips, buccal mucosa, and tongue normal and mucous membranes are moist NECK: supple, no nuchal rigidity, no adenopathy, non-tender LUNGS: Clear to auscultation. Normal chest wall mechanics HEART: Tachycardiac and irregularly irregular. No murmurs, S1 normal and S2 normal ABDOMEN: abdomen soft, non-tender, normo-active bowel sounds, no masses, no rebound or guarding. BACK: Back is symmetrical on inspection and there is no deformity, no midline tenderness, no CVA tenderness. SKIN: no rashes and no bruising UPPER EXTREMITIES: upper extremities are grossly normal. LOWER EXTREMITIES: No pitting edema. Calves are equal bilaterally. NEURO EXAM: Normal sensorium, cranial nerves II-XII grossly intact, normal speech, no gross weakness of arms, no gross weakness of legs. Course ED COURSE: Vital signs were reviewed and normal. The patients medical record was reviewed The above diagnostic studies were performed and reviewed. ED treatments and interventions as stated above. 1048: The patient was evaluated in room C10. A complete history and physical examination was performed. 1202: I reevaluated the patient at this time. 1204: I discussed the patients case with Dr. Roman Odonnell hospitalist. He will evaluate the patient for further management. 1205: Upon reevaluation, I discussed my findings with the patient and her daughter who understands and agrees with the treatment plan. Based on the patients age, coexisting illnesses, exam and lab findings the decision to treat as an inpatient was made. The patient remained stable while under my care. The patient will be evaluated for further management. Administered Medications Diltiazem HCl 125 mg/ Dextrose 125 mls @ 5 mls/hr IV .Q24H [facility]; Protocol Stop: 05/24/19 10:59 Last Titration: 04/24/19 15:09 Dose: 5 mg/hr, 5 mls/hr Documented by: [id number] Cosigned by: [id number] Admin: 04/24/19 11:14 Dose: 5 mg/hr, 5 mls/hr Documented by: [id number] Cosigned by: [id number] Discontinued Medications Diltiazem HCl (Cardizem) 10 mg IV NOW STA Stop: 04/24/19 10:57 Last Admin: 04/24/19 11:15 Dose: 10 mg Documented by: [id number] Cosigned by: [id number] Sodium Chloride (Nss 1000ml) 1,000 mls @ 999 mls/hr IV .Q1H1M ONE Stop: 04/24/19 11:52 Last Infusion: 04/24/19 12:17 Dose: 0 mls/hr Documented by: [id number] Admin: 04/24/19 11:15 Dose: 999 mls/hr Documented by: [id number] Metoprolol Tartrate (Lopressor) 12.5 mg PO ONCE STA Stop: 04/24/19 12:30 Last Admin: 04/24/19 13:08 Dose: 12.5 mg Documented by: [id number] Potassium Chloride (Klor-Con M20) 40 meq PO NOW STA Stop: 04/24/19 12:12 Last Admin: 04/24/19 12:20 Dose: 40 meq Documented by: [id number] Medical Decision Making Differential Diagnosis Differential diagnoses includes but is not limited to pneumonia, bronchitis, COPD/Asthma exacerbation, pneumothorax, pulmonary embolism, congestive heart failure, acute coronary syndrome Medical Records Attestation: I reviewed the patient's medical records. Home Medications Current Medication List: was personally reviewed by me Laboratory Data Attestation: I reviewed the patient's lab results. Result diagrams: 04/24/19 10:45 04/24/19 10:45 Lab Results 04/24/19 04/24/19 04/24/19 Range/Units 10:45 10:45 10:45 WBC 6.39 (4.8-10.8) K/uL RBC 5.20 (4.2-5.4) M/uL Hgb 16.4 H (12.0-16.0) g/dL Hct 46.6 (37-47) % MCV 89.6 (80-100) fL MCH 31.5 (25-34) pg MCHC 35.2 (32-36) g/dL RDW Std Deviation 39.0 (36.4-46.3) fL RDW Coeff of David 12.0 (11.5-14.5) % Plt Count 256 (130-400) K/uL MPV 9.4 (7.4-10.4) fL Immature Gran % (Auto) 0.2 % Neut % (Auto) 43.8 % Lymph % (Auto) 39.4 % [place] % (Auto) 11.9 % Eos % (Auto) 3.3 % Baso % (Auto) 1.4 % Immature Gran # (Auto) 0.01 (0.00-0.02) K/uL Neut # (Auto) 2.80 (1.4-6.5) K/uL Lymph # (Auto) 2.52 (1.2-3.4) K/uL [place] # (Auto) 0.76 H (0.11-0.59) K/uL Eos # (Auto) 0.21 (0-0.5) K/uL Baso # (Auto) 0.09 (0-0.2) K/uL Sodium 139 (136-145) mmol/L Potassium 3.4 L (3.5-5.1) mmol/L Chloride 107 (98-107) mmol/L Carbon Dioxide 26 (21-32) mmol/L Anion Gap 6.0 (3-11) BUN 17 (7-18) mg/dl Creatinine 0.99 (0.6-1.2) mg/dl Est Cr Clr Drug Dosing 88.7 ml/min Est GFR ( Amer) 73.8 Est GFR (Non-Af Amer) 63.7 BUN/Creatinine Ratio 16.9 (10-20) Glucose 108 H (70-99) mg/dl Calcium 8.9 (8.5-10.1) mg/dl Magnesium 2.3 (1.8-2.4) mg/dl Total Bilirubin 0.4 (0.2-1) mg/dl AST 20 (15-37) U/L ALT 19 (12-78) U/L Alkaline Phosphatase 88 (45-117) U/L Troponin I < 0.015 (0-0.045) ng/ml Total Protein 7.9 (6.4-8.2) gm/dl Albumin 2.9 L (3.4-5.0) gm/dl Globulin 4.9 H (2.5-4.0) gm/dl Albumin/Globulin Ratio 0.6 L (0.9-2) Lipase 120 (73-393) U/L TSH (0.300-4.500) uIu/ml 04/24/19 Range/Units 10:45 WBC (4.8-10.8) K/uL RBC (4.2-5.4) M/uL Hgb (12.0-16.0) g/dL Hct (37-47) % MCV (80-100) fL MCH (25-34) pg MCHC (32-36) g/dL RDW Std Deviation (36.4-46.3) fL RDW Coeff of David (11.5-14.5) % Plt Count (130-400) K/uL MPV (7.4-10.4) fL Immature Gran % (Auto) % Neut % (Auto) % Lymph % (Auto) % [place] % (Auto) % Eos % (Auto) % Baso % (Auto) % Immature Gran # (Auto) (0.00-0.02) K/uL Neut # (Auto) (1.4-6.5) K/uL Lymph # (Auto) (1.2-3.4) K/uL [place] # (Auto) (0.11-0.59) K/uL Eos # (Auto) (0-0.5) K/uL Baso # (Auto) (0-0.2) K/uL Sodium (136-145) mmol/L Potassium (3.5-5.1) mmol/L Chloride (98-107) mmol/L Carbon Dioxide (21-32) mmol/L Anion Gap (3-11) BUN (7-18) mg/dl Creatinine (0.6-1.2) mg/dl Est Cr Clr Drug Dosing ml/min Est GFR ( Amer) Est GFR (Non-Af Amer) BUN/Creatinine Ratio (10-20) Glucose (70-99) mg/dl Calcium (8.5-10.1) mg/dl Magnesium (1.8-2.4) mg/dl Total Bilirubin (0.2-1) mg/dl AST (15-37) U/L ALT (12-78) U/L Alkaline Phosphatase (45-117) U/L Troponin I (0-0.045) ng/ml Total Protein (6.4-8.2) gm/dl Albumin (3.4-5.0) gm/dl Globulin (2.5-4.0) gm/dl Albumin/Globulin Ratio (0.9-2) Lipase (73-393) U/L TSH 2.390 (0.300-4.500) uIu/ml Imaging Data Radiologist's Impression: Radiology results as stated below per my review and the radiologist's interpretation: SINGLE VIEW CHEST CLINICAL HISTORY: Atypical chest pain. FINDINGS: An AP, portable, upright chest radiograph is compared to study dated 10/08/2016. The cardiomediastinal silhouette is unremarkable. There is mild bibasilar atelectasis. The lungs and pleural spaces are otherwise clear. No pneumothorax is seen. The bony thorax is grossly intact. IMPRESSION: No active disease in the chest. Electronically signed by: Chandler Gutierrez M.D. 04/24/2019 10:59 AM ECG Data Attestation: I personally reviewed and interpreted this ECG as follows: Indication: + tachycardia Rate (beats per minute): 142 Rhythm: + atrial fibrillation (with RVR) ECG [place]: + Left axis deviation ECG Findings: + Other (No PVC. Inferior Q waves. Normal QTC. ) Blood Pressure Blood Pressure Findings: Elevated blood pressure Blood Pressure Disposition: further management by hospitalist JAMIE Narrative Patient is a 58-year-old female with a past medical history of A. fib who presents the ER for palpitations. Started around 1 AM this morning with a coughing fit. Vitals show heart rate of 140. EKG confirms A. fib with RVR. Labs show no significant leukocytosis or anemia. BMP with mild hypokalemia. LFTs bilirubin and troponin was negative. Lipase is negative. TSH normal. Influenza was negative. Chest x-ray unremarkable. Patient was given a bolus of Cardizem and placed on a Cardizem drip. Heart rate trended down to 100. She was updated bedside. Discussed with the hospitalist admitted for A. fib with RVR on a Cardizem drip. Impression & Plan Atrial fibrillation with RVR, Shortness of breath Critical Care Time Critical Care Time: Yes Total Critical Care Time: 40 I have personally spent 40 minutes of critical care time in the direct management of this patient. This includes bedside care, interpretation of diagnostic studies, and testing, discussion with consultants, patient, and family members, and other required patient management activities. This 40 minutes is in excess of all separately billable procedures. Discharge Plan Visit Data *Final* Discharge Date/Time: 04/24/19 13:42 Chief Complaint: Chest Pain Stated Complaint: AFIB ED Provider: Williams Cazares Discharge Problem: Atrial fibrillation with RVR, Shortness of breath Patient Disposition: Admitted As Inpatient Discharge Instructions Interventions: ED Discharge Assessment Last Done: 04/24/19 13:42 The scribe's documentation has been prepared under my direction and personally reviewed by me in its entirety. I confirm that the note above accurately reflects all work, treatment, procedures, and medical decision making performed by me.
[2019-04-24] MEDS ORDERED: Nursing to Pharmacy Communication ONE (18:01)
[2019-04-24] MEDS ORDERED: COUGH DROP (SUGAR FREE) LOZ 24 LOZ/1 BOX BUCCAL STA (19:47)
[2019-04-24] MEDS: APIXABAN 5 MG TABLET PO SCH (20:26)
[2019-04-24] MEDS: METOPROLOL TARTRATE 25 MG TAB PO SCH (20:27)
[2019-04-24] MEDS: FLUTICASONE HFA 220 MCG INHALER INH SCH (20:28)
[2019-04-24] MEDS ORDERED: MONTELUKAST SODIUM 10 MG TABLET PO SCH (21:00)
[2019-04-25 06:35] LABS: Hematocrit (blood only) 42.6 % (37-47); Hemoglobin 14.3 g/dL (12.0-16.0); Mean Corpuscular Hgb Conc 33.6 g/dL (32-36); Mean Corpuscular Volume 89.5 fL (80-100); Mean Platelet Volume 9.4 fL (7.4-10.4); Platelet Count 229 K/uL (130-400); RDW Coefficient of Variation 12.1 % (11.5-14.5); RDW Standard Deviation 39.6 fL (36.4-46.3); Red Blood Count 4.76 M/uL (4.2-5.4); White Blood Count 4.41 K/uL (4.8-10.8)
[2019-04-25 07:10] LABS: Albumin Level 2.6 gm/dl (3.4-5.0); BUN Creatinine Ratio 22.8 (10-20); Calcium 8.4 mg/dl (8.5-10.1); Creatinine Clr Calc Pharmacy 107.4 ml/min; Est GFR (African American) 92.7; Potassium 3.5 mmol/L (3.5-5.1)
[2019-04-25 07:12] LABS: Basophils # (auto) 0.12 K/uL (0-0.2); Basophils % (auto) 2.7 %; Eosinophils # (auto) 0.24 K/uL (0-0.5); Eosinophils % (auto) 5.4 %; Immature Granulocytes # (auto) 0.02 K/uL (0.00-0.02); Immature Granulocytes % (auto) 0.5 %; Lymphocytes # (auto) 1.96 K/uL (1.2-3.4); Lymphocytes % (auto) 44.4 %; Monocytes # (auto) 0.54 K/uL (0.11-0.59); Monocytes % (auto) 12.2 %; Neutrophils # (auto) 1.53 K/uL (1.4-6.5); Neutrophils % (auto) 34.8 %
[2019-04-25 07:13] LABS: Albumin Globulin Ratio 0.6 (0.9-2); Bilirubin,Total 0.4 mg/dl (0.2-1); Globulin 4.5 gm/dl (2.5-4.0); Total Protein 7.1 gm/dl (6.4-8.2)
[2019-04-25] MEDS: APIXABAN 5 MG TABLET PO SCH (08:38)
[2019-04-25] MEDS: METOPROLOL TARTRATE 25 MG TAB PO SCH (08:39)
[2019-04-25] MEDS: FLUTICASONE HFA 220 MCG INHALER INH SCH (08:40)
[2019-04-25] MEDS ORDERED: TRIAMTERENE/HCTZ 37.5/25MG CAP PO SCH (09:00)
[2019-04-25] MEDS ORDERED: LORATADINE 10 MG TAB PO SCH (09:00)
--- NOTE | 2019-04-25 09:42 | Cardiology Consultation ---
Date of Consultation April 25, 2019 Assessment & Plan (1) PAF (paroxysmal atrial fibrillation): (2) URI (upper respiratory infection): (3) HTN (hypertension): 58-year-old female admitted with paroxysmal atrial fibrillation with rapid ventricular response in the setting of upper respiratory tract infection. Spontaneously converted to sinus rhythm at approximately 5 PM 04/24/2019. Appropriately anticoagulated with Eliquis. Current medications reviewed. Recommend addition of Toprol-XL 12.5 mg daily. Patient will attempt to take on a daily basis despite previously reported side effects. Specifically, discussed taking beta susana for at least an additional week as she recovers from this upper respiratory tract infection. If she is unable to tolerate beta-susana on a daily basis she will then utilize on an as-needed basis for recurrent episodes of palpitations. No further inpatient cardiology testing at this time. I will arrange for outpatient cardiology follow-up in 2 to 4 weeks. Thank you for allowing me to participate in the care of your patient. History of Present Illness Reason for Consultation: Paroxysmal atrial fibrillation Requesting Physician: Dr. Downs Attending Physician: Daphnie Downs MD History of Present Illness 58-year-old female admitted with palpitations. EKG confirms atrial fibrillation with rapid ventricular response. Carries a history of A. fib on chronic anticoagulation. Beta-susana intolerance noted. Patient reports a "foggy feeling in her head" when she takes metoprolol. Evaluated by her primary care physician earlier in the week secondary to upper respiratory tract infection. Prescribed Z-Hima. On Thursday patient reports significant coughing spells which induced palpitations. The palpitations persisted overnight on Thursday into Thursday. She presented to the ER for further evaluation. Patient treated with metoprolol and IV Cardizem infusion on admission. Subsequently converted to sinus rhythm at approximately 5 PM 04/24/2019. Today she is feeling well from a cardiovascular perspective. No recurrent palpitations overnight. Telemetry confirms sinus rhythm. She is received 2 doses of oral metoprolol. She is yet to receive her a.m. dose of diltiazem. Allergies Allergy/AdvReac Type Severity Reaction Status Date / Time Penicillins Allergy Intermediate rash Verified 04/24/19 12:08 Sulfa (Sulfonamide AdvReac Intermediate GI UPSET Verified 04/24/19 12:08 Antibiotics) meperidine [From Demerol] AdvReac Mild n/v Verified 04/24/19 12:09 Androgenic Anabolic Steroid AdvReac Palpitation Unverified 04/24/19 12:08 s Home Medications Home Medications Medication Instructions Recorded Confirmed Type albuterol sulfate [Ventolin HFA] 2 puff INHALATION Q6H PRN #1 02/03/17 04/24/19 History inhaler fluticasone propionate [Flovent 1 puff INHALATION BID 30 Days #1 02/03/17 04/24/19 History HFA] inhaler apixaban [Eliquis] 5 mg PO BID 04/24/19 04/24/19 History diltiazem HCl 180 mg PO QAM 04/24/19 04/24/19 History loratadine [Claritin] 10 mg PO QAM 04/24/19 04/24/19 History montelukast 10 mg PO HS 04/24/19 04/24/19 History triamterene-hydrochlorothiazid 1 cap PO QAM 04/24/19 04/24/19 History Patient History Medical History PAF (paroxysmal atrial fibrillation) Allergic rhinitis (Chronic) HTN (hypertension) (Chronic) Asthma, mild persistent (Chronic) Surgical History History of colonoscopy History of tubal ligation (Chronic) Family History Father Stroke Other Colorectal cancer Social History Preferred Language: Georgian Communication Ability: Effective Screen Door Maker Required: No Beliefs That Will Affect Care: None Current Living Situation: Family Current Living Situation Comment: Lives with 2 daughters Other Information That Helps Us Care for You: No Feels Safe at Home: Yes Safety Concerns: Feels Safe At This Time Smoking Status: Former smoker Hx Alcohol Use: Yes (rarely) Alcohol type: wine Alcohol Intake Frequency: Rarely Hx Substance Use: No Review of Systems Review of Systems: All systems reviewed & are unremarkable except as noted in HPI & below Physical Exam Physical Exam: General: NAD, AAO x3, well nourished. Obese. HEENT: Normocephalic. Atraumatic. Conjunctiva pink, no scleral icterus. Neck: No carotid bruits, the carotid upstrokes are brisk. No JVD. No HJR Heart: Regular normal S-1 and S-2 no S-3 or S-4 gallop. No murmurs or rub appreciated. PMI is not displaced. No RV heave. Lungs: Clear bilateral without rales , rhonchi, or wheeze. Abdomen: Normal bowel sounds. Soft. Nontender. No masses or organomegaly. No abdominal bruits. Extremities: No clubbing, cyanosis, or edema. Pulses: radial=2/4, Dorsalis pedis =2/4, posterior tibial=2/4. Neuro: Cranial nerves grossly intact. No focal motor deficit. Results & Data Vital Signs (Past 12 Hours) Vital Signs Temp Pulse Pulse Pulse Resp BP Pulse Ox 04/25/19 07:12 36.6 C 63 20 121/76 93 04/25/19 03:24 36.4 C L 70 16 135/78 94 04/24/19 23:45 62 04/24/19 23:16 36.7 C 69 16 139/78 94 Laboratory Results Laboratory Results - last 24 hr 04/24/19 04/24/19 04/24/19 10:45 10:45 10:45 WBC 6.39 RBC 5.20 Hgb 16.4 H Hct 46.6 MCV 89.6 MCH 31.5 MCHC 35.2 RDW Std Deviation 39.0 RDW Coeff of David 12.0 Plt Count 256 MPV 9.4 Immature Gran % (Auto) 0.2 Neut % (Auto) 43.8 Lymph % (Auto) 39.4 [place] % (Auto) 11.9 Eos % (Auto) 3.3 Baso % (Auto) 1.4 Immature Gran # (Auto) 0.01 Neut # (Auto) 2.80 Lymph # (Auto) 2.52 [place] # (Auto) 0.76 H Eos # (Auto) 0.21 Baso # (Auto) 0.09 Sodium 139 Potassium 3.4 L Chloride 107 Carbon Dioxide 26 Anion Gap 6.0 BUN 17 Creatinine 0.99 Est Cr Clr Drug Dosing 88.7 Est GFR ( Amer) 73.8 Est GFR (Non-Af Amer) 63.7 BUN/Creatinine Ratio 16.9 Glucose 108 H Calcium 8.9 Magnesium 2.3 Total Bilirubin 0.4 AST 20 ALT 19 Alkaline Phosphatase 88 Troponin I < 0.015 Total Protein 7.9 Albumin 2.9 L Globulin 4.9 H Albumin/Globulin Ratio 0.6 L Lipase 120 TSH Influenza Type A Ag Influenza Type B Ag 04/24/19 04/24/19 04/25/19 10:45 12:49 06:09 WBC 4.41 L RBC 4.76 Hgb 14.3 Hct 42.6 MCV 89.5 MCH 30.0 MCHC 33.6 RDW Std Deviation 39.6 RDW Coeff of David 12.1 Plt Count 229 MPV 9.4 Immature Gran % (Auto) 0.5 Neut % (Auto) 34.8 Lymph % (Auto) 44.4 [place] % (Auto) 12.2 Eos % (Auto) 5.4 Baso % (Auto) 2.7 Immature Gran # (Auto) 0.02 Neut # (Auto) 1.53 Lymph # (Auto) 1.96 [place] # (Auto) 0.54 Eos # (Auto) 0.24 Baso # (Auto) 0.12 Sodium Potassium Chloride Carbon Dioxide Anion Gap BUN Creatinine Est Cr Clr Drug Dosing Est GFR ( Amer) Est GFR (Non-Af Amer) BUN/Creatinine Ratio Glucose Calcium Magnesium Total Bilirubin AST ALT Alkaline Phosphatase Troponin I Total Protein Albumin Globulin Albumin/Globulin Ratio Lipase TSH 2.390 Influenza Type A Ag Neg for Influ A Influenza Type B Ag Neg for Influ B 04/25/19 06:09 WBC RBC Hgb Hct MCV MCH MCHC RDW Std Deviation RDW Coeff of David Plt Count MPV Immature Gran % (Auto) Neut % (Auto) Lymph % (Auto) [place] % (Auto) Eos % (Auto) Baso % (Auto) Immature Gran # (Auto) Neut # (Auto) Lymph # (Auto) [place] # (Auto) Eos # (Auto) Baso # (Auto) Sodium 138 Potassium 3.5 Chloride 106 Carbon Dioxide 25 Anion Gap 7.0 BUN 19 H Creatinine 0.82 Est Cr Clr Drug Dosing 107.4 Est GFR ( Amer) 92.7 Est GFR (Non-Af Amer) 80.0 BUN/Creatinine Ratio 22.8 H Glucose 93 Calcium 8.4 L Magnesium Total Bilirubin 0.4 AST 16 ALT 17 Alkaline Phosphatase 79 Troponin I Total Protein 7.1 Albumin 2.6 L Globulin 4.5 H Albumin/Globulin Ratio 0.6 L Lipase TSH Influenza Type A Ag Influenza Type B Ag (1) HTN (hypertension) Hypertension type: essential hypertension Qualified Code(s): I10 - Essential (primary) hypertension
--- NOTE | 2019-04-25 15:02 | Discharge Summary ---
Date of Service April 25, 2019 Admission HPI Per Admitting Provider This is a 58-year-old female who has significant PMH of paroxysmal A. fib anticoagulated on Eliquis, HTN, allergic rhinitis, asthma, morbid obesity who presents to [facility] secondary to A. fib starting at approximately 1 AM. 3 daughters are at bedside. For the past 6 days patient has been experiencing URI symptoms including dry cough, subjective fever, sinus congestion and rhinorrhea. She was prescribed a Z-Hima which she completed her last dose this morning. She has also been taking dads-omd-pixcvnf Robitussin-DM and Tessalon Perles. Approximately 2 days ago she felt her symptoms start to improve, but not completely go away. She was awoken at approximately 1 AM this morning with a coughing fit, felt her heart racing and her heartbeat to be irregular. Her heart rate was in the 140s. She took a dose of her diltiazem 180 mg. Symptoms persisted and approximately 3 hours later she took half a tablet equating to 90 mg. Further complains of weakness and fatigue therefore she presented to ED. After receiving treatment in ED currently she does feel much improved. Denies any current feeling of fevers, chills, sweats, lightheadedness, dizziness, chest pain, shortness of breath, orthopnea, PND, hemoptysis, nausea, vomiting, abdominal pain, change in her bowel or urinary habits. For the past several days she has had an overall decreased appetite due to not feeling well. Thought she may be dehydrated. She has been taking medications as prescribed and has not missed a single dose of Eliquis. In ED EKG revealed atrial fibrillation with RVR, heart rate 142. CBC relatively unremarkable, potassium low at 3.4, troponin WNL, mag WNL. Chest x-ray revealed no acute cardiopulmonary abnormality. She received 10 mg bolus of diltiazem and started on diltiazem drip. Received 1 L IVF. Principal Diagnosis Atrial fibrillation Discharge Exam Constitutional WD/WN, vitals as above Eyes PERRL, conjunctivae normal, anicteric sclerae ENMT external ear and nose normal, oropharynx normal Neck trachea midline, no thyromegaly Respiratory normal respiratory effort, lungs clear to auscultation Cardiovascular RRR, no murmur, no edema Gastrointestinal (Abdomen) normal bowel sounds, soft, nontender, no hepatosplenomegaly Musculoskeletal no cyanosis or clubbing, extremities motor strength 5/5 Skin no rashes, warm and dry Neurologic PERRL, EOMI, accommodation nl, no face palsy, no dysarthria Psychiatric A+Ox3, euthymic affect Discharge Data Allergies Allergy/AdvReac Type Severity Reaction Status Date / Time Penicillins Allergy Intermediate rash Verified 04/24/19 12:08 Sulfa (Sulfonamide AdvReac Intermediate GI UPSET Verified 04/24/19 12:08 Antibiotics) meperidine [From Demerol] AdvReac Mild n/v Verified 04/24/19 12:09 Androgenic Anabolic Steroid AdvReac Palpitation Unverified 04/24/19 12:08 s Consultations 04/24/19 12:07 ED Decision to Admit Stat 04/24/19 12:56 Consult Cardiology Routine Hospital Course (1) Atrial fibrillation with RVR: This is a 58-year-old female who has significant PMH of paroxysmal A. fib anticoagulated on Eliquis, HTN, allergic rhinitis, asthma, morbid obesity who presents to [facility] Rapid A. fib, RVR heart rate 142 Patient started on IV Cardizem drip, converted to sinus with rest rate controlled Home p.o. Cardizem 180 mg resumed She is anticoagulated with Eliquis - pt previously on BB in past and didn't tolerate due to fatigue, Appreciate input from cardiology Dr. Amador recommend addition of Toprol-XL 12.5 mg daily. If she is unable to tolerate beta-susana on a daily basis she will then utilize on an as-needed basis for recurrent episodes of palpitations. Audiology follow-up scheduled in 2-4 weeks (2) Hypokalemia: Acted (3) URI (upper respiratory infection): URI x 6 days Finished Zpack today has been taking OTC robitussin DM; Tessalon Perles Symptom has completely resolved, flu swab negative (4) HTN (hypertension): blood pressure stable continue triamterene/HCTZ Continue Cardizem, Lopressor dose as discussed above (5) Asthma, mild persistent: no acute exacerbation continue flovent, prn xopenex neb continue Singulair (6) DVT prophylaxis: Eliquis FULL CODE Disposition: Karla to be discharged home today Follow up: PCP Dr. Syed upon discharge Total Time Total Time Spent Total Time Spent (In Minutes): Approximately 35 minutes Total Time Includes: Examination of the Patient, Discharge Planning and Medication Reconciliation Discharge Plan Discharge Items Patient Disposition: Home - Self-Care Reason For Visit: AFIB Discharge Diagnosis: Atrial fibrillation Activity: Resume your previous activity Non-emergency contact: Primary Care Provider Call non-emergency contact if: you have any medication questions Follow-up/Referrals: Zayda Syed MD [Primary Care Provider] - 04/29/19 11:05 am Ellie Nj PA-C [Physician Machine Sprayer] - 05/23/19 12:45 pm Diet: Heart Healthy Addtl Attending Provider Instructions: NEW MEDICATION Toprol-XL 12.5 mg daily. -For heart rate control Continue to take on a daily basis at least for a week if unable to tolerate Metoprolol Succinate on a daily basis -due to side effect can take as-needed basis for recurrent episodes of palpitations. please call your family physician or cardiology office as soon as possible come to ER if it is after hour /or unable to contact your doctor Hospital follow-up with family physician: Dr. Syed on 04/29/2009 at 11:05 AM Cardiology follow-up: With Ellie Nj PA-C on 05/23/2019 at 12:45 PM Pending Studies at Discharge: No Stand-Alone Forms: Call Back Authorization, [facility], Smoking Cessation Medications and DC Order Prescriptions: New metoprolol succinate 25 mg Tablet Extended Release 24 Hr 12.5 mg PO QAM 30 Days Qty: 15 RF: 0 Continued Flovent HFA 220 mcg/actuation Hfa Aerosol Inhaler 1 puff INHALATION BID 30 Days Qty: 1 RF: 3 albuterol sulfate [Ventolin HFA] 90 mcg/actuation Hfa Aerosol Inhaler 2 puff INHALATION Q6H PRN (Reason: Shortness Of Breath) Qty: 1 RF: 0 triamterene-hydrochlorothiazid 37.5-25 mg capsule 1 cap PO QAM RF: 0 montelukast 10 mg tablet 10 mg PO HS RF: 0 loratadine [Claritin] 10 mg Tablet 10 mg PO QAM RF: 0 diltiazem HCl 180 mg tablet extended release 24 hr 180 mg PO QAM RF: 0 Eliquis 5 mg tablet 5 mg PO BID RF: 0 Discharge Orders: Discharge Order (Routine); Ordered 04/25/19 Ordered By: Daphnie Downs Admission Data Admit Date/Time: 04/24/19 12:42 Attending Provider: Daphnie Downs Admit Provider: Roberto Owens Primary Care Provider: Zayda Syed Other Providers: Roberto Owens ; Alexander Amador Other Interventions: Discharge Summary Assessment (RN) Last Done: 04/25/19 15:55 DC Date/Time DO NOT enter until pt leaves facility: 04/25/19 16:18
[2019-04-26] MEDS ORDERED: METOPROLOL SUCC 25MG EXT REL TAB PO SCH (09:00)
== END 2019-04-25 16:18 | disposition home or self-care (01) | DRG 309 ==
LOC: ED 10:23 → 2S 12:42 → SUATTDRO 12:42 → 2S 13:42